=== PATIENT | female | born 1990 | race Caucasian/White ===

== ENCOUNTER 2017-06-28 19:07 | Emergency (ER) | payer BC ==
[2017-06-28 19:29] VITALS: BP 136/86; PULSE 99; TEMP 98.1; BMI 52.3
[2017-06-28] MEDS ORDERED: ALBUTEROL SO4 2.5/IPRATROPIUM 0.5 INH SOL 3 ML VIAL.NEB. NEB ONE ×2 (20:12→20:13)
[2017-06-28] MEDS ORDERED: KETOROLAC TROMETHAMINE 30 MG/1 ML VIAL IVPUSH ONE (20:19)
[2017-06-28] MEDS ORDERED: KETOROLAC TROMETHAMINE 30 MG/1 ML VIAL ONE (20:32)
--- NOTE | 2017-06-28 20:35 | PDOC ---
History of Present Illness - General Chief Complaint: Pain Stated Complaint: CHEST PAIN Time Seen by Provider: 06/28/17 19:57 History Source: Patient Exam Limitations: No Limitations - History of Present Illness Initial Comments: 06/28/17 20:22 The patient is a 26F with a PMH of morbid obesity, asthma, and anemia who presents to the ED with CP and difficulty breathing. The patient states that her difficulty breathing has been occurring for the past few days. The patient is also complaining of chest pain that started 1 hour ago. The chest pain is retrosternal and radiates to both shoulders. It is not associated with diaphoresis or nausea. The patient states that she's been out of breath easily. The patient states that she has tried her symbicort and it has not helped. She also complains of lightheadedness x 1.5 weeks. Allergies: none Surg: none Social: does not drink, smoke, or use drugs Past History - Past Medical History Allergies/Adverse Reactions: Allergies Allergy/AdvReac Type Severity Reaction Status Date / Time No Known Allergies Allergy Verified 06/28/17 19:27 Home Medications: Ambulatory Orders Albuterol Sulfate Inhaler - [Ventolin HFA Inhaler -] 1 - 2 inh IH Q4H #1 inhaler 05/20/12 Budesonide/Formeterol Fumarate [SYMBICORT 80/4.5mcg -] 1 inh PO DAILY 10/29/15 Norethindrone-E.estradiol-Iron [Microgestin Fe 1.5-30 Tab] 1 each PO DAILY 10/29 Albuterol Sulfate Inhaler - [Ventolin HFA Inhaler -] 1 - 2 inh PO Q4H #1 inhaler 06/28/17 Anemia: Yes (blood transfusion 06/12/15) Asthma: Yes Suicide Attempt (Hx): No - Reproductive History Therapeutic (s) & number: No - Immunization History Td Vaccination: (unknown) Immunization Up to Date: Yes - Psycho/Social/Smoking Cessation Hx Anxiety: No Suicidal Ideation: No Smoking Status: No Smoking History: Never smoked Years of Tobacco Use: 0 Have you smoked in the past 12 months: No Number of Cigarettes Smoked Daily: 0 Cigars Per Day: 0 Information on smoking cessation initiated: No Hx Alcohol Use: No Drug/Substance Use Hx: No Substance Use Type: None Hx Substance Use Treatment: No Review of Systems - Review of Systems Constitutional: No: Chills, Fever HEENTM: Yes: Nose Congestion. No: Eye Pain, Ear Pain, Nose Pain Respiratory: Yes: Cough, Shortness of Breath, Productive cough (white phlegm). No: Wheezing Cardiac (ROS): Yes: Chest Pain ABD/GI: Yes: Nausea. No: Vomiting, Other (abd pain) : No: Dysuria, Discharge, Frequency Neurological: Yes: Headache *Physical Exam - Vital Signs Last Vital Signs Temp Pulse Resp BP Pulse Ox 98.1 F 99 H 18 136/86 98 06/28/17 19:27 06/28/17 19:27 06/28/17 19:27 06/28/17 19:27 06/28/17 19:27 - Physical Exam General Appearance: Yes: Nourished, Appropriately Dressed, Obese HEENT: positive: Normal Voice, Hearing Grossly Normal Respiratory/Chest: positive: Chest Tender, Wheezing (more prominent in R lung [place]). negative: Respiratory Distress, Accessory Muscle Use Cardiovascular: positive: Regular Rhythm, S1, S2, Tachycardia Gastrointestinal/Abdominal: positive: Flat, Soft. negative: Tender, Distended, Guarding, Rebound, Tenderness Integumentary: positive: Dry, Warm. negative: Swelling Neurologic: positive: Fully Oriented, Alert, Normal Mood/Affect, Motor Strength 5/5 Heart Score/ECG Review - ECG Impressions Normal ECG: Yes Tachycardia: Sinus ED Treatment Course - LABORATORY CBC & Chemistry Diagram: 06/28/17 20:31 06/28/17 20:31 Medical Decision Making - Medical Decision Making 06/28/17 20:42 The patient is a 26F with a PMH of obesity and asthma who is presenting with TTP chest pain and difficulty breathing. EKG is sinus tach, she is wheezy in R lung [place] so I will rule out pna and give her nebs. I have drawn basic labs and will reassess patient after neb and labs return. 06/28/17 22:18 Patient's labs are WNL. The patient's pain has not been resolved but I have advised the patient to take motrin if the pain continues or return to the ER if it persists or worsens. The patient's wheezing has resolved after a neb treatment. I will also prescribe her a rescue inhaler. *DC/Admit/Observation/Transfer Diagnosis at time of Disposition: Chest wall pain - Discharge Dispostion Disposition: HOME Condition at time of disposition: Improved Admit: No - Patient Instructions Printed Discharge Instructions: DI for Atypical Chest Pain, DI for Chest Pain Additional Instructions: Please return to the ER if symptoms persist, worsen, or if new symptoms arise. Please return if you have increased shortness of breath, worsening chest pain, or if you feel like your symptoms are not getting better. - Attestations Physician Attestion: 06/28/17 22:22 I, Dr. Jeff Carver, attest that this document has been prepared under my direction and personally reviewed by me in its entirety. I further attest, that it accurately reflects all work, treatment, procedures and medical decision -making performed by me.
[2017-06-28 20:44] LABS: BASOPHIL 0.5 % (0-2.0); EOSINOPHIL 3.4 % (0-4.5); MCH 26.7 pg (25.7-33.7); MCHC 32.2 g/dl (32.0-36.0); MEAN CELL VOLUME 83.1 fl (80-96); MEAN PLT VOLUME 8.2 fl (7.5-11.1); NEUTROPHILS 66.7 % (42.8-82.8); PLATELET COUNT 394 K/MM3 (134-434); WHITE BLOOD COUNT 9.7 K/mm3 (4.0-10.0)
[2017-06-28 21:14] LABS: ALBUMIN 3.2 g/dl (3.4-5.0); ALK PHOS 134 U/L (45-117); ANION GAP 7 (8-16); BILIRUBIN,TOTAL 0.2 mg/dL (0.2-1.0); CALCIUM 8.9 mg/dL (8.5-10.1); CO2 26 mmol/L (21-32); CREATININE 0.8 mg/dL (0.55-1.02); GLUCOSE,RANDOM 99 mg/dL (74-106); SGPT/ALT 25 U/L (12-78); TOT PROT 7.5 g/dl (6.4-8.2)
[2017-06-28 21:33] LABS: SGOT/AST 24 U/L (15-37)
--- NOTE | 2017-06-30 08:16 | EKG ---
Test Reason : Blood Pressure : / mmHG Vent. Rate : 101 BPM Atrial Rate : 101 BPM P-R Int : 136 ms QRS Dur : 086 ms QT Int : 338 ms P-R-T Axes : 021 016 008 degrees QTc Int : 438 ms SINUS TACHYCARDIA OTHERWISE NORMAL ECG WHEN COMPARED WITH ECG OF 29-OCT-2015 21:58, NO SIGNIFICANT CHANGE WAS FOUND Confirmed by SNEHA CHASE MD ([id number]) on 06/30/2017 8:16:24 AM Referred By: Confirmed By:SNEHA CHASE MD
== END 2017-06-28 23:09 | disposition home or self-care (01) ==
LOC: JER 19:07
PROC: 3E0333Z Introduction of Anti-inflammatory into Peripheral Vein, Percutaneous Approach (ICD-10-PCS; principal; 2017-06-28)
PROC: 3E0F7GC Introduction of Other Therapeutic Substance into Respiratory Tract, Via Natural or Artificial Opening (ICD-10-PCS; 2017-06-28)
DX: R07.89 Other chest pain (principal); E66.01 Morbid (severe) obesity due to excess calories; Z68.43 Body mass index [BMI] 50.0-59.9, adult; J45.909 Unspecified asthma, uncomplicated; D64.9 Anemia, unspecified
CPT/HCPCS: 36415; 71020-TC; 80053; 83690; 84703; 85025; 85379; 93005; 93010; 99282-25

== ENCOUNTER 2017-07-05 16:49 | Emergency (ER) | payer BC ==
[2017-07-05 17:09] VITALS: BP 154/93; PULSE 97; TEMP 98.2; BMI 54.9
[2017-07-05] MEDS ORDERED: predniSONE 20 MG TABLET (UD) PO ONE (17:37)
[2017-07-05] MEDS ORDERED: predniSONE 20 MG TABLET (UD) ONE (17:40)
[2017-07-05] MEDS ORDERED: ALBUTEROL SO4 2.5/IPRATROPIUM 0.5 INH SOL 3 ML VIAL.NEB. NEB ONE ×4 (17:40→22:41)
[2017-07-05] MEDS: ALBUTEROL SO4 2.5/IPRATROPIUM 0.5 INH SOL 3 ML VIAL.NEB. NEB SCH ×3 (17:43→19:00)
--- NOTE | 2017-07-05 17:43 | PDOC ---
History of Present Illness - General Chief Complaint: Asthma Stated Complaint: ASTHMA Time Seen by Provider: 07/05/17 17:34 History Source: Patient Exam Limitations: No Limitations - History of Present Illness Initial Comments: 07/05/17 19:05 26 yr female history of asthma no intubations , one hospitalization 10 yrs ago presents with cough, wheezing for 3 days. Pt recently seen in ER 06/28/17 for same , was given albuterol and felt better. Pt denies smoking or exposure, is speaking full sentences. Severity: reports: mild Possible Cause: Yes: frequent episodes Past History - Past Medical History Allergies/Adverse Reactions: Allergies Allergy/AdvReac Type Severity Reaction Status Date / Time No Known Allergies Allergy Verified 07/05/17 17:04 Home Medications: Ambulatory Orders Budesonide/Formeterol Fumarate [SYMBICORT 80/4.5mcg -] 1 inh PO DAILY 10/29/15 Norethindrone-E.estradiol-Iron [Microgestin Fe 1.5-30 Tab] 1 each PO DAILY 10/29 Albuterol Sulfate Inhaler - [Ventolin HFA Inhaler -] 1 - 2 inh PO Q4H #1 inhaler 06/28/17 Anemia: Yes (blood transfusion 06/12/15) Asthma: Yes Suicide Attempt (Hx): No Other medical history: obesity - Reproductive History Therapeutic (s) & number: No - Immunization History Td Vaccination: (unknown) Immunization Up to Date: Yes - Psycho/Social/Smoking Cessation Hx Anxiety: No Suicidal Ideation: No Smoking Status: No Smoking History: Never smoked Years of Tobacco Use: 0 Have you smoked in the past 12 months: No Number of Cigarettes Smoked Daily: 0 Cigars Per Day: 0 Hx Alcohol Use: No Drug/Substance Use Hx: No Substance Use Type: None Hx Substance Use Treatment: No Respiratory Specific PMHX - Complaint Specific PMHX Angina: No Bronchitis: Yes Review of Systems - Review of Systems Able to Perform ROS?: Yes Is the patient limited Afghan proficient: No Constitutional: No: Symptoms Reported HEENTM: No: Symptoms Reported Respiratory: Yes: Cough, Wheezing *Physical Exam - Vital Signs Last Vital Signs Temp Pulse Resp BP Pulse Ox 98.2 F 97 H 19 154/93 95 07/05/17 17:04 07/05/17 17:04 07/05/17 17:04 07/05/17 17:04 07/05/17 17:04 - Physical Exam General Appearance: Yes: Nourished, Appropriately Dressed, Obese HEENT: positive: EOMI, KEV, Normal ENT Inspection, TMs Normal, Pharynx Normal Neck: positive: Supple Respiratory/Chest: positive: Chest Tender, Wheezing Cardiovascular: positive: Regular Rhythm, Regular Rate Musculoskeletal: positive: Normal Inspection Extremity: positive: Normal Capillary Refill, Normal Inspection, Normal Range of Motion Integumentary: positive: Normal Color, Dry, Warm Neurologic: positive: Fully Oriented, Alert, Normal Mood/Affect, Normal Response , Motor Strength 5/5 Medical Decision Making - Medical Decision Making 07/05/17 19:07 cc: cough wheezing afebrile stable vitals will give duoneb x3 prednisone 60mg and reevaluate 07/05/17 19:38 pt continues to wheeze after 3 duonebs, 60mg prednisone. will transfer pt to the main ER for further management, endorsed to Lianet TONEY charge nurse Callum robertson and pt to go to bed 11A pt aware of the plan of care and agrees with the plan . 07/05/17 19:42 *DC/Admit/Observation/Transfer Diagnosis at time of Disposition: Asthma, Viral syndrome, Obesities, morbid - Discharge Dispostion Disposition: HOME Condition at time of disposition: Stable - Referrals Referrals: Favio Ann MD [Staff Physician] - - Patient Instructions Printed Discharge Instructions: Asthma -- Adult, DI for Obesity -- Adult Additional Instructions: Follow up with your physician Return to the ER for severe/persistent/worsening symptoms Print Language: ESTONIAN - Post Discharge Activity Work/School Note: Back to Work
[2017-07-05] MEDS ORDERED: MAGNESIUM SULF 50% (8.12 MEQ/2 ML-1 GM VIAL) IVPB ONE (20:02)
[2017-07-05] MEDS ORDERED: MAGNESIUM SULF 50% (8.12 MEQ/2 ML-1 GM VIAL) ONE (20:15)
--- NOTE | 2017-07-05 22:35 | PDOC ---
*Physical Exam - Vital Signs Last Vital Signs Temp Pulse Resp BP Pulse Ox 98.2 F 97 H 19 154/93 95 07/05/17 17:04 07/05/17 17:04 07/05/17 17:04 07/05/17 17:04 07/05/17 17:04 ED Treatment Course - ADDITIONAL ORDERS Additional order review: Laboratory Results 07/05/17 21:10 Urine HCG, Qual Negative - RADIOLOGY Radiology Studies Ordered: Category Date Time Status CHEST PA & LAT [RAD] Stat Radiology 07/05/17 20:49 Taken - Medications Given in the ED: ED Medications Discontinued Medications Generic Name Dose Route Start Last Admin Trade Name Freq PRN Reason Stop Dose Admin Albuterol/Ipratropium 1 amp 07/05/17 17:45 07/05/17 19:00 Duoneb - NEB 07/05/17 18:16 1 amp Q15M LUANN Administration Magnesium Sulfate 1 gm 07/05/17 20:02 07/05/17 20:24 Magnesium Sulfate IVPB 07/05/17 20:03 1 gm ONCE ONE Administration Prednisone 60 mg 07/05/17 17:37 07/05/17 17:43 Deltasone - PO 07/05/17 17:38 60 mg ONCE ONE Administration *DC/Admit/Observation/Transfer Diagnosis at time of Disposition: Viral syndrome, Obesities, morbid Asthma Qualifiers: Asthma severity: mild intermittent Asthma complication type: uncomplicated Qualified Code(s): J45.20 - Mild intermittent asthma, uncomplicated - Discharge Dispostion Disposition: HOME Condition at time of disposition: Stable Admit: No - Referrals Referrals: Favio Ann MD [Staff Physician] - - Patient Instructions Printed Discharge Instructions: Asthma -- Adult, DI for Obesity -- Adult Additional Instructions: Follow up with your physician Return to the ER for severe/persistent/worsening symptoms Print Language: HAITIAN - Post Discharge Activity Work/School Note: Back to Work
== END 2017-07-05 23:41 | disposition home or self-care (01) ==
LOC: JER 16:49 → JERFT 16:49 → JER 23:41
PROC: 3E033GC Introduction of Other Therapeutic Substance into Peripheral Vein, Percutaneous Approach (ICD-10-PCS; principal; 2017-07-05)
PROC: 3E0F7GC Introduction of Other Therapeutic Substance into Respiratory Tract, Via Natural or Artificial Opening (ICD-10-PCS; 2017-07-05)
DX: J45.20 Mild intermittent asthma, uncomplicated (principal); B34.9 Viral infection, unspecified; E66.01 Morbid (severe) obesity due to excess calories; Z68.43 Body mass index [BMI] 50.0-59.9, adult; D64.9 Anemia, unspecified
CPT/HCPCS: 71020-TC; 84703; 99282-25

== ENCOUNTER 2017-10-14 13:19 | Emergency (ER) | payer BC ==
[2017-10-14 13:25] VITALS: BP 155/91; PULSE 82; TEMP 97.7; BMI 54.9
[2017-10-14] MEDS ORDERED: ALBUTEROL SO4 2.5/IPRATROPIUM 0.5 INH SOL 3 ML VIAL.NEB. NEB ONE ×2 (15:23→15:29)
--- NOTE | 2017-10-14 15:25 | PDOC ---
History of Present Illness - General Chief Complaint: Cold Symptoms Stated Complaint: COLD SYMPTOMS Time Seen by Provider: 10/14/17 14:53 History Source: Patient Exam Limitations: No Limitations - History of Present Illness Initial Comments: 10/14/17 16:04 My chief complaint: Sore throat, nasal congestion, cough, with intermittent shortness of breath with walking, intermittent headaches History of present illness: Patient is a 27-year-old female with a history of asthma and anemia here today complaining of sore throat, with intermittent headache none presently, nasal congestion, dry cough with intermittent shortness of breath with exertion for the last 3 days. Patient recalls being admitted for her asthma when she was 15 or 16 years old with no intubation. Patient reports that her parents were sick with similar symptoms recently. Patient denies having any fever or difficulty swallowing. Patient reports having intermittent wheezing relieved with nebulizer. Patient has had no recent travel Timing/Duration: intermittent (for 3 days ) Associated Symptoms: reports: cough, headaches, other (cough , sore throat ) Past History - Past Medical History Allergies/Adverse Reactions: Allergies Allergy/AdvReac Type Severity Reaction Status Date / Time No Known Allergies Allergy Verified 10/14/17 13:22 Home Medications: Ambulatory Orders Albuterol Sulfate Inhaler - [Ventolin HFA Inhaler -] 1 - 2 inh PO Q4H #1 inhaler 06/28/17 Albuterol 0.083% Nebulizer Wilma [Ventolin 0.083% Nebulizer Soln -] 1 neb NEB Q4H PRN #1 vial 10/14/17 Albuterol Sulfate Inhaler - [Ventolin HFA Inhaler -] 2 inh PO Q4H PRN #1 inh Amoxicillin - [Amoxicillin 500mg Capsule -] 500 mg PO BID #20 capsule 10/14/17 Montelukast Na [Singulair -] 10 mg PO HS 10/14/17 Anemia: Yes (blood transfusion 06/12/15) Asthma: Yes COPD: No - Reproductive History Therapeutic (s) & number: No - Immunization History Td Vaccination: (unknown) Immunization Up to Date: Yes - Suicide/Smoking/Psychosocial Hx Smoking Status: No Smoking History: Never smoked Years of Tobacco Use: 0 Have you smoked in the past 12 months: No Number of Cigarettes Smoked Daily: 0 Cigars Per Day: 0 Information on smoking cessation initiated: No Hx Alcohol Use: No Drug/Substance Use Hx: No Substance Use Type: None Hx Substance Use Treatment: No Review of Systems - Review of Systems Able to Perform ROS?: Yes Constitutional: No: Symptoms Reported HEENTM: Yes: Nose Congestion, Throat Pain Respiratory: Yes: Cough, SOB with Exertion, Wheezing Cardiac (ROS): No: Symptoms Reported ABD/GI: No: Symptoms Reported : No: Symptoms Reported Musculoskeletal: No: Symptoms Reported Integumentary: No: Symptoms Reported Neurological: No: Symptoms reported *Physical Exam - Vital Signs Last Vital Signs Temp Pulse Resp BP Pulse Ox 97.7 F 82 18 155/91 100 10/14/17 13:23 10/14/17 13:23 10/14/17 13:23 10/14/17 13:23 10/14/17 13:23 - Physical Exam General Appearance: Yes: Appropriately Dressed HEENT: positive: TMs Normal, Pharyngeal Erythema, Tonsillar Erythema (with no uvular deviation ), Nasal Congestion. negative: Tonsillar Exudate Neck: negative: Lymphadenopathy (R), Lymphadenopathy (L) Respiratory/Chest: positive: Lungs Clear, Normal Breath Sounds. negative: Chest Tender, Respiratory Distress Cardiovascular: positive: Regular Rhythm, Regular Rate, S1, S2 Integumentary: positive: Normal Color Neurologic: positive: Alert, Normal Response, Responsive Medical Decision Making - Medical Decision Making 10/14/17 16:06 Patient is a 27-year-old female with a history of asthma and anemia here today complaining of sore throat, with intermittent headache none presently, nasal congestion, dry cough with intermittent shortness of breath with exertion for the last 3 days. Patient recalls being admitted for her asthma when she was 15 or 16 years old with no intubation. Patient reports that her parents were sick with similar symptoms recently. Patient denies having any fever or difficulty swallowing. Patient reports having intermittent wheezing relieved with nebulizer. Patient has had no recent travel r/o Strep tonsillitis asthma exacerbation PLAN: throat C & S rapid + for beta hemolytic strep group A duoneb now amoxicillin 500 mg bid for 10 days albuterol HFA 2 puffs every 4 hrs prn wheezing/sob albuterol neb 0.083 % neb every 4 hrs prn wheezing/sob *DC/Admit/Observation/Transfer Diagnosis at time of Disposition: Acute streptococcal tonsillitis Qualifiers: Streptococcal tonsillitis recurrence: not specified as recurrent or not Qualified Code(s): J03.00 - Acute streptococcal tonsillitis, unspecified Asthma exacerbation Qualifiers: Asthma severity: unspecified severity Asthma persistence: unspecified Qualified Code(s): J45.901 - Unspecified asthma with (acute) exacerbation - Discharge Dispostion Disposition: HOME Condition at time of disposition: Stable - Referrals Referrals: STAFF,NOT ON [Primary Care Provider] - - Patient Instructions Additional Instructions: Take ibuprofen or acetaminophen as needed as instructed by golf course superintendent for pain or fever Throw out her toothbrush at the end of treatment get new one Return to emergency room if symptoms worsen any difficulty breathing or any new symptoms develop Patient voiced understanding of discharge instructions and all questions were answered And thank you for choosing [facility] emergency room premedical needs today - Post Discharge Activity
== END 2017-10-14 16:15 | disposition home or self-care (01) ==
LOC: JERFT 13:19
PROC: 3E0F7GC Introduction of Other Therapeutic Substance into Respiratory Tract, Via Natural or Artificial Opening (ICD-10-PCS; principal; 2017-10-14)
PROC: 3E0F7GC Introduction of Other Therapeutic Substance into Respiratory Tract, Via Natural or Artificial Opening (ICD-10-PCS; 2017-10-14)
DX: J03.00 Acute streptococcal tonsillitis, unspecified (principal); J45.901 Unspecified asthma with (acute) exacerbation; R51 Headache
CPT/HCPCS: 87070; 87430; 99281-25

== ENCOUNTER 2018-04-01 07:58 | Emergency (ER) | payer BC ==
[2018-04-01 08:03] VITALS: BP 170/80; PULSE 78; TEMP 97.4; BMI 61.9
--- NOTE | 2018-04-01 08:10 | PDOC ---
History of Present Illness - General Chief Complaint: Back Pain Stated Complaint: LOWER BACK PAIN Time Seen by Provider: 04/01/18 08:08 History Source: Patient Exam Limitations: No Limitations - History of Present Illness Initial Comments: 04/01/18 08:26 CHIEF COMPLAINT: Right lateral low back pain HISTORY OF PRESENT ILLNESS:27 y/o morbidly obese female presents to the ER ambulatory with steady gait. C/O right lateral low back pain. Patient states pain started 3 days ago, has been working out a lot recently using the treadmill , elliptical and doing pushups and sit-ups thinks she may have strained something. Has been taking muscle relaxers cyclobenzaprine but they in 2016 pain is to right lateral lower back, , Nonradiating pain, no neurosensory deficits, no bowel or bladder difficulty incontinence or urinary retention, no saddle anesthesia, no footdrop. No history of IVDU or history of cancer. REVIEW OF SYSTEMS: GENERAL: Afebrile, denies any weakness RESPIRATORY: No cough, wheezing, or hemoptysis. CARDIAC: No chest pain or shortness of breath MUSCULOSKELETAL: Pain to generalized lower back. No point tenderness. Pain worse on right than left. SKIN : No erythema, no bruising, no deformity. GI/: Denies any abdominal pain, no urinary difficulty, incontinence or urinary retention. RECTAL: Denies any difficulty this A.m. NEUROLOGICAL: Denies any numbness or tingling. No neurosensory deficits. PHYSICAL EXAM: GENERAL: The patient is awake, alert, and fully oriented, in no acute distress. RESPIRATORY: Lungs clear bilaterally, no rhonchi wheezes or crackles CARDIAC: S1-S2 audible, no murmur rub or gallop MUSCULOSKELETAL: Pain to generalized lower back, nonradiating, no tingling or sensory deficit. Less than 2 second cap refill, +4 popliteal and pedal pulses. GI/: Abdomen soft, nontender, nondistended. No rebound tenderness. No masses palpable. MUSCULOSKELETAL: No spinal point tenderness. Normal reflexive and no deficits to sensation or strength. RECTAL: Deferred patient with no neurological findings SKIN: Warm, Dry, normal turgor, no erythema, no edema no bruising. Past History - Past Medical History Allergies/Adverse Reactions: Allergies Allergy/AdvReac Type Severity Reaction Status Date / Time No Known Allergies Allergy Verified 04/01/18 08:00 Home Medications: Ambulatory Orders Albuterol Sulfate Inhaler - [Ventolin HFA Inhaler -] 1 - 2 inh PO Q4H #1 inhaler 06/28/17 Albuterol 0.083% Nebulizer Wilma [Ventolin 0.083% Nebulizer Soln -] 1 neb NEB Q4H PRN #1 vial 10/14/17 Albuterol Sulfate Inhaler - [Ventolin HFA Inhaler -] 2 inh PO Q4H PRN #1 inh Montelukast Na [Singulair -] 10 mg PO HS 10/14/17 Cyclobenzaprine HCl [Flexeril 10 mg] 10 mg PO BID PRN #20 tablet 04/01/18 Naproxen [Naprosyn -] 500 mg PO BID #20 tablet 04/01/18 Anemia: Yes (blood transfusion 06/12/15) Asthma: Yes COPD: No - Reproductive History Therapeutic (s) & number: No - Immunization History Td Vaccination: (unknown) Immunization Up to Date: Yes - Suicide/Smoking/Psychosocial Hx Smoking Status: No Smoking History: Never smoked Years of Tobacco Use: 0 Have you smoked in the past 12 months: No Number of Cigarettes Smoked Daily: 0 Cigars Per Day: 0 Information on smoking cessation initiated: No Hx Alcohol Use: No Drug/Substance Use Hx: No Substance Use Type: None Hx Substance Use Treatment: No *Physical Exam - Vital Signs Last Vital Signs Temp Pulse Resp BP Pulse Ox 97.4 F L 78 18 170/80 100 04/01/18 08:00 04/01/18 08:00 04/01/18 08:00 04/01/18 08:00 04/01/18 08:00 Medical Decision Making - Medical Decision Making 04/01/18 08:34 A/P: Patient here for evaluation of right lateral lower back pain, on examination appears to be musculoskeletal in nature. Will give Toradol 60 mg IM , urinalysis, urine culture and urine sent 04/01/18 11:40 Laboratory Results - last 24 hr 04/01/18 08:25 Urine Color Ltyellow Urine Appearance Slcloudy Urine pH 5.0 Ur Specific [place] 1.028 Urine Protein Negative Urine Glucose (UA) Negative Urine Ketones Negative Urine Blood 3+ H Urine Nitrite Negative Urine Bilirubin Negative Urine Urobilinogen Negative Ur Leukocyte Esterase Trace Urine WBC (Auto) 13 Urine RBC (Auto) 247 Ur Epithelial Cells Rare Urine Mucus Rare Urine HCG, Qual Negative Patient has +3 blood in the urine, reports having prolonged menses since March 23 has been bleeding intermittently since. We cannot rule out kidney stone due to area of pain with + 3 blood in the urine. CT scan performed with no evidence of calculus will DC patient home on anti-inflammatories, Flexeril, follow-up with orthopedics as needed for pain. *DC/Admit/Observation/Transfer Diagnosis at time of Disposition: Back pain Qualifiers: Back pain location: low back pain Chronicity: acute Back pain laterality: right Sciatica presence: without sciatica Qualified Code(s): M54.5 - Low back pain - Discharge Dispostion Disposition: HOME Condition at time of disposition: Stable Decision to Admit order: No - Prescriptions Prescriptions: Cyclobenzaprine HCl [Flexeril 10 mg] 10 mg PO BID PRN #20 tablet PRN Reason: Pain Naproxen [Naprosyn -] 500 mg PO BID #20 tablet - Referrals - Patient Instructions Printed Discharge Instructions: DI for Low Back Pain Additional Instructions: 1. Please return to the emergency department with any numbness, tingling, weakness, numbness or tingling to groin or legs, or loss of bowel or bladder function. 2. Use pain medication as ordered. 3. Please is to followup in the office of Dr. Ledesma for evaluation within a week if no improvement. 4. Ice or heat 5. Refrain from lifting anything above 10 pounds, until pain resolved. Refrain from strenuous activity until pain resolves. - Post Discharge Activity Forms/Work/School Notes: Back to Work
[2018-04-01] MEDS ORDERED: KETOROLAC TROMETHAMINE 60 MG/2 ML VIAL IM ONE (08:25)
[2018-04-01 09:17] LABS: HCG,QUALITATIVE URINE NEGATIVE
[2018-04-01 09:18] LABS: URINE APPEARANCE SLCLOUDY; URINE BILIRUBIN NEGATIVE (<2.0 mg/dL); URINE COLOR LTYELLOW; URINE GLUCOSE (UA) NEGATIVE (NEGATIVE); URINE KETONE NEGATIVE (NEGATIVE); URINE LEUK ESTERASE TRACE (NEGATIVE); URINE NITRITE NEGATIVE (NEGATIVE); URINE PROTEIN NEGATIVE (NEGATIVE); URINE UROBILINOGEN NEGATIVE mg/dL (0.2-1.0)
[2018-04-01] MEDS ORDERED: KETOROLAC TROMETHAMINE 60 MG/2 ML VIAL ONE (09:28)
[2018-04-01 09:38] LABS: EPI CELLS RARE /HPF (FEW); URINE MUCUS RARE
== END 2018-04-01 11:47 | disposition home or self-care (01) ==
LOC: JERFT 07:58
PROC: 3E0233Z Introduction of Anti-inflammatory into Muscle, Percutaneous Approach (ICD-10-PCS; principal; 2018-04-01)
DX: M54.5 Low back pain (principal)
CPT/HCPCS: 74176; 81003; 81015; 84703; 99281-25

== ENCOUNTER 2018-05-06 08:05 | Emergency (ER) | payer BC ==
[2018-05-06 08:12] VITALS: BP 141/79; PULSE 97; TEMP 98; BMI 60.2
--- NOTE | 2018-05-06 08:19 | PDOC ---
History of Present Illness - General Chief Complaint: Back Pain Stated Complaint: BACK PAIN Time Seen by Provider: 05/06/18 08:16 History Source: Patient Exam Limitations: No Limitations - History of Present Illness Initial Comments: 05/06/18 08:49 Patient is a 27-year-old female who presents to the emergency department today complaining of low back pain. Patient states that she feels like she states that the computer a lot which may contribute to her back pain. Denies trauma, fall, heavy lifting, new activity. Denies fevers, chills, numbness and tingling to the extremities, saddle paresthesia, bladder bowel incontinence. Past History - Travel Traveled outside of the country in the last 30 days: No - Past Medical History Allergies/Adverse Reactions: Allergies Allergy/AdvReac Type Severity Reaction Status Date / Time No Known Allergies Allergy Verified 05/06/18 08:08 Home Medications: Ambulatory Orders Ibuprofen 800 mg PO TID #30 tablet 05/06/18 Tramadol HCl 50 mg PO BID #10 tablet MDD 2 05/06/18 Anemia: Yes (blood transfusion 06/12/15) Asthma: Yes COPD: No DVT: No - Reproductive History Therapeutic (s) & number: No - Immunization History Td Vaccination: (unknown) Immunization Up to Date: Yes - Suicide/Smoking/Psychosocial Hx Smoking Status: No Smoking History: Never smoked Years of Tobacco Use: 0 Have you smoked in the past 12 months: No Number of Cigarettes Smoked Daily: 0 Cigars Per Day: 0 Information on smoking cessation initiated: No Hx Alcohol Use: No Drug/Substance Use Hx: No Substance Use Type: None Hx Substance Use Treatment: No Review of Systems - Review of Systems Able to Perform ROS?: Yes Comments:: 05/06/18 08:17 CONSTITUTIONAL: Absent: fever, chills, diaphoresis, generalized weakness, malaise, loss of appetite GASTROINTESTINAL: Absent: abdominal pain, abdominal distension, nausea, vomiting, diarrhea, constipation, melena, hematochezia GENITOURINARY: Absent: dysuria, frequency, urgency, hesitancy, hematuria, flank pain, genital pain MUSCULOSKELETAL: Present: Low back pain. Absent: myalgia, arthralgia, joint swelling SKIN: Absent: rash, itching, pallor NEUROLOGIC: Absent: headache, focal weakness or paresthesias, dizziness, unsteady gait, seizure, mental status changes, bladder or bowel incontinence Is the patient limited Mohawk proficient: No *Physical Exam - Vital Signs Last Vital Signs Temp Pulse Resp BP Pulse Ox 98.0 F 97 H 18 141/79 100 05/06/18 08:10 05/06/18 08:10 05/06/18 08:10 05/06/18 08:10 05/06/18 08:10 - Physical Exam Comments: 05/06/18 08:17 GENERAL: Well developed, well nourished. Awake and alert. No acute distress. HEENT: Normocephalic, atraumatic. PERRLA, EOMI. No conjunctival pallor. Sclera are non- icteric. Moist mucous membranes. Oropharynx is clear. NECK: Supple. Full ROM. No JVD. Carotid pulses 2+ and symmetric, without bruits. No thyromegaly. No lymphadenopathy. TTP of the midback at the level of L3 radiating to the right side. Normal range of motion at all joints. No bony deformities or tenderness. No CVA tenderness. EXTREMITIES: No cyanosis. No clubbing. No edema. No calf tenderness. SKIN: Warm and dry. Normal capillary refill. No rashes. No jaundice. NEUROLOGICAL: Alert, awake, appropriate. Cranial nerves 2-12 intact. No deficits to light touch and temperature in face, upper extremities and lower extremities. No motor deficits in the in face, upper extremities and lower extremities. Normoreflexic in the upper and lower extremities. Normal speech. Toes are down- going bilaterally. Gait is normal without ataxia. PSYCHIATRIC: Cooperative. Good eye contact. Appropriate mood and affect. Medical Decision Making - Medical Decision Making 05/06/18 09:19 Patient is a 27-year-old female who presents to the emergency department today with low back pain. On exam patient tender to the mid back at the level of L3. No neuro deficits. Gait steady. Urine is negative at this time. We'll treat with Toradol as this is most likely a muscle spasm. Return precautions given. We'll discharge patient home at this time. Patient received all discharge instructions and all questions were answered. *DC/Admit/Observation/Transfer Diagnosis at time of Disposition: Back pain Qualifiers: Back pain location: low back pain Chronicity: acute Back pain laterality: right Sciatica presence: without sciatica Qualified Code(s): M54.5 - Low back pain - Discharge Dispostion Disposition: HOME Condition at time of disposition: Good Decision to Admit order: No - Prescriptions Prescriptions: Ibuprofen 800 mg PO TID #30 tablet Tramadol HCl 50 mg PO BID #10 tablet MDD 2 - Referrals Referrals: Tarun Diaz MD [Primary Care Provider] - - Patient Instructions Printed Discharge Instructions: DI for Low Back Pain Additional Instructions: You have low back pain due to a muscle spasm. Please take ibuprofen 800 mg 3 times a day not to exceed 3000 mg a day. You were also prescribed Flexeril. Please take this medication every 8 hours for the first day. Then take the medication before you go to bed. Do not drive after taking this medication as it may make you sleepy. You may take Tramadol every 12 hours as needed for break through pain. Do not drive after taking this medication or mix with alcohol. You may use warm compresses on your back to help with her symptoms. Please follow-up with your primary care doctor. If your symptoms do not resolve in 3-5 days, follow-up with orthopedics. A referral has been provided for you. Return to the emergency department if you have worsening back pain, bladder or bowel incontinence, numbness and tingling in her legs, changes in the way you walk, or any new or worsening symptoms. - Post Discharge Activity Forms/Work/School Notes: Back to Work
[2018-05-06] MEDS ORDERED: KETOROLAC TROMETHAMINE 60 MG/2 ML VIAL IM ONE (09:01)
[2018-05-06] MEDS ORDERED: KETOROLAC TROMETHAMINE 60 MG/2 ML VIAL ONE (09:16)
== END 2018-05-06 09:20 | disposition home or self-care (01) ==
LOC: JERFT 08:05
PROC: 3E0233Z Introduction of Anti-inflammatory into Muscle, Percutaneous Approach (ICD-10-PCS; principal; 2018-05-06)
DX: M54.5 Low back pain (principal); J45.909 Unspecified asthma, uncomplicated
CPT/HCPCS: 84703; 99281-25

== ENCOUNTER 2018-09-16 20:22 | Emergency (ER) | payer BC ==
[2018-09-16 20:31] VITALS: BP 152/85; PULSE 84; TEMP 98.1; BMI 58.4
--- NOTE | 2018-09-16 21:40 | PDOC ---
History of Present Illness - General Chief Complaint: Asthma Stated Complaint: Asthma/BACK PAIN Time Seen by Provider: 09/16/18 21:32 - History of Present Illness Initial Comments: 09/16/18 21:36 28-year-old female with past medical history significant for asthma presents for evaluation of asthma, she states she's been taking her home albuterol but ran out and neck pain with right upper extremity radicular symptoms. No loss of bowel bladder function. No systemic symptoms. Past History - Past Medical History Allergies/Adverse Reactions: Allergies Allergy/AdvReac Type Severity Reaction Status Date / Time No Known Allergies Allergy Verified 09/16/18 20:30 Home Medications: Ambulatory Orders Albuterol 0.083% Nebulizer Wilma 09/16/18 Albuterol Sulfate Inhaler - [Ventolin HFA Inhaler -] 1 - 2 inh PO Q4H #1 inhaler 09/16/18 Methylprednisolone [Medrol Dose Marcell] 4 mg PO ASDIR #21 tablet 09/16/18 SYMBICORT 160/4.5mcg - 09/16/18 Anemia: Yes (blood transfusion 06/12/15) Asthma: Yes COPD: No DVT: No - Reproductive History Therapeutic (s) & number: No - Immunization History Td Vaccination: (unknown) Immunization Up to Date: Yes - Suicide/Smoking/Psychosocial Hx Smoking Status: No Smoking History: Never smoked Years of Tobacco Use: 0 Have you smoked in the past 12 months: No Number of Cigarettes Smoked Daily: 0 Cigars Per Day: 0 Information on smoking cessation initiated: No Hx Alcohol Use: No Drug/Substance Use Hx: No Substance Use Type: None Hx Substance Use Treatment: No Review of Systems - Review of Systems Respiratory: Yes: Wheezing Musculoskeletal: Yes: Neck Pain All Other Systems: Reviewed and Negative *Physical Exam - Vital Signs Last Vital Signs Temp Pulse Resp BP Pulse Ox 98.1 F 84 16 152/85 100 09/16/18 20:28 09/16/18 20:28 09/16/18 20:28 09/16/18 20:28 09/16/18 20:28 - Physical Exam Comments: 09/16/18 21:37 HEAD: NC/AT EYES: Conjuntiva clear Ears: Canals and TM's normal NOSE: No d/c THROAT: Moist mucous membrances, oral pharanx clear, uvula midline NECK: Supple without adenopathy CARDIAC: S1 S2 LUNGS: CTA Full and Equal breath sounds ABDOMEN: Soft NT ND MS: Full ROM in all joints without edema NEUROLOGIC: No gross sensory or motor deficits, NVID SKIN: Normal color and temperature no lesions or rashes Cervical spine skin color and temperature are normal range of motion is full is mild right-sided paracervical and trapezial muscle spasm. 5 out of 5 strength in bilateral upper extremities but a negative Spurling maneuver. She has no gross sensorimotor deficits. She is neurovascular intact. Medical Decision Making - Medical Decision Making 09/16/18 21:37 Patient has no symptoms of asthma. She's not wheezing. I will give her Medrol Dosepak for her radicular symptoms and refill her Ventolin as requested. Shell with pulmonology in orthopedics *DC/Admit/Observation/Transfer Diagnosis at time of Disposition: Cervical radicular pain, Medication refill - Discharge Dispostion Disposition: HOME Condition at time of disposition: Stable Decision to Admit order: No - Prescriptions Prescriptions: Albuterol Sulfate Inhaler - [Ventolin HFA Inhaler -] 1 - 2 inh PO Q4H #1 inhaler Methylprednisolone [Medrol Dose Marcell] 4 mg PO ASDIR #21 tablet - Referrals Referrals: Tarun Diaz MD [Primary Care Provider] - Tyson Gross MD [Staff Physician] - Uli Swain MD [Staff Physician] - - Patient Instructions Printed Discharge Instructions: Asthma -- Adult, DI for Cervical Radiculopathy Additional Instructions: I have refilled her albuterol as requested and given you a steroid pack which should help with her asthmatic symptoms although you are not wheezing now steroids are indicated for asthma exacerbations. Please follow-up with orthopedic surgery for further evaluation and treatment of her neck pain as well as pulmonology for further evaluation and treatment of her asthma. The steroid will also help with your neck pain and arm pain. Return to the emergency room should symptoms worsen or go unresolved. I'll up with orthopedic surgery in 2-3 days - Post Discharge Activity
== END 2018-09-16 21:45 | disposition home or self-care (01) ==
LOC: JERFT 20:22
DX: M54.12 Radiculopathy, cervical region (principal); Z76.0 Encounter for issue of repeat prescription; Z87.09 Personal history of other diseases of the respiratory system
CPT/HCPCS: 99281-25

== ENCOUNTER 2018-11-26 15:14 | Inpatient (IN) | payer BC ==
--- NOTE | 2018-11-26 15:23 | PDOC ---
Rapid Medical Evaluation Time Seen by Provider: 11/26/18 15:19 Medical Evaluation: Allergies Allergy/AdvReac Type Severity Reaction Status Date / Time No Known Allergies Allergy Verified 09/16/18 20:30 11/26/18 15:19 I have performed a brief in-person evaluation of this patient. The patient presents with a chief complaint of: headaches Pertinent physical exam findings: sent by ophtho for head CT. CNII-XII grossly intact. Gait steady I have ordered the following: urine, CTH The patient will proceed to the ED for further evaluation. Discharge Disposition - Diagnosis Headache - Referrals Referrals: Adrienne Watts [Primary Care Provider] - - Patient Instructions - Post Discharge Activity
[2018-11-26 16:39] LABS: HCG,QUALITATIVE URINE Negative
--- NOTE | 2018-11-26 16:41 | PDOC ---
History of Present Illness - General Chief Complaint: Headache Stated Complaint: SENT BY PCP FOR A CATSCAN Time Seen by Provider: 11/26/18 15:19 - History of Present Illness Initial Comments: 11/26/18 16:49 Ms. Scott is a 28 yo female w/ pmh of asthma who presents for evaluation of 1 month history of headache with burning eye pain. Patient was evaluated by eye doctor today and recommended to present to ER for CT for evaluation. Patient was noted to have papil edema at eye doctor earlier today. The patient denies chest pain, shortness of breath, and dizziness. Denies fever , chills, nausea, vomit, diarrhea and constipation. Denies dysuria, frequency, urgency and hematuria. Past History - Past Medical History Allergies/Adverse Reactions: Allergies Allergy/AdvReac Type Severity Reaction Status Date / Time No Known Allergies Allergy Verified 11/26/18 15:31 Home Medications: Ambulatory Orders Albuterol Sulfate Inhaler - [Ventolin HFA Inhaler -] 1 - 2 inh PO Q4H #1 inhaler 09/16/18 Albuterol 0.083% Nebulizer Wilma [Ventolin 0.083%] 1 neb NEB Q4H PRN 11/26/18 Budesonide/Formeterol Fumarate [SYMBICORT 160/4.5mcg -] 2 inh PO BID 11/26/18 Montelukast Sodium [Singulair] 10 mg PO HS 11/26/18 Anemia: Yes (blood transfusion 06/12/15) Asthma: Yes COPD: No CHF: No DVT: No - Reproductive History Therapeutic (s) & number: No - Immunization History Td Vaccination: (unknown) Immunization Up to Date: Yes - Suicide/Smoking/Psychosocial Hx Smoking Status: No Smoking History: Never smoked Years of Tobacco Use: 0 Have you smoked in the past 12 months: No Number of Cigarettes Smoked Daily: 0 Cigars Per Day: 0 Information on smoking cessation initiated: No Hx Alcohol Use: No Drug/Substance Use Hx: No Substance Use Type: None Hx Substance Use Treatment: No Review of Systems - Review of Systems Comments:: 11/26/18 16:50 GENERAL/CONSTITUTIONAL: No fever or chills. No weakness. HEAD, EYES, EARS, NOSE AND THROAT: +Eye "burning." No change in vision. No ear pain or discharge. No sore throat. CARDIOVASCULAR: No chest pain or shortness of breath RESPIRATORY: No cough, wheezing, or hemoptysis. GASTROINTESTINAL: No nausea, vomiting, diarrhea or constipation. GENITOURINARY: No dysuria, frequency, or change in urination. MUSCULOSKELETAL: No joint or muscle swelling or pain. No neck or back pain. SKIN: No rash NEUROLOGIC: +Generalized headache. No vertigo, loss of consciousness, or change in strength/sensation. ENDOCRINE: No increased thirst. No abnormal weight change HEMATOLOGIC/LYMPHATIC: No anemia, easy bleeding, or history of blood clots. ALLERGIC/IMMUNOLOGIC: No hives or skin allergy. *Physical Exam - Vital Signs Last Vital Signs Temp Pulse Resp BP Pulse Ox 97.5 F L 81 18 142/63 100 11/26/18 15:20 11/26/18 15:20 11/26/18 15:20 11/26/18 15:20 11/26/18 15:20 - Physical Exam Comments: 11/26/18 16:50 GENERAL: +Patient morbidly obese. Awake, alert, and fully oriented, in no acute distress HEAD: No signs of trauma, normocephalic, atraumatic EYES: PERRLA, EOMI, sclera anicteric, conjunctiva clear ENT: Auricles normal inspection, hearing grossly normal, nares patent, oropharynx clear without exudates. Moist mucosa NECK: Normal ROM, supple, no lymphadenopathy, JVD, or masses LUNGS: No distress, speaks full sentences, clear to auscultation bilaterally HEART: Regular rate and rhythm, normal S1 and S2, no murmurs, rubs or gallops, peripheral pulses normal and equal bilaterally. ABDOMEN: Soft, nontender, normoactive bowel sounds. No guarding, no rebound. No masses EXTREMITIES: Normal inspection, Normal range of motion, no edema. No clubbing or cyanosis. NEUROLOGICAL: Cranial nerves II through XII grossly intact. Normal speech, normal gait, no focal sensorimotor deficits SKIN: Warm, Dry, normal turgor, no rashes or lesions noted. Moderate Sedation - Procedure Monitoring Vital Signs: Procedure Monitoring Vital Signs Temperature 97.5 F L 11/26/18 15:20 Pulse Rate 81 11/26/18 15:20 Respiratory Rate 18 11/26/18 15:20 Blood Pressure 142/63 11/26/18 15:20 O2 Sat by Pulse Oximetry (%) 100 11/26/18 15:20 ED Treatment Course - LABORATORY CBC & Chemistry Diagram: 11/26/18 17:41 11/26/18 17:41 - ADDITIONAL ORDERS Additional order review: Laboratory Results 11/26/18 16:00 Urine HCG, Qual Negative Medical Decision Making - Medical Decision Making 11/26/18 18:18 Ms. Scott is a 28 yo female w/ pmh as described who presents for evaluation of symptoms concerning for increased ICP. Patient evaluated with CT which was normal. LP revealed opening pressure of 37 and required draining several times to normalize. CSF currently pending laboratory evaluation. Discussed with Neurology who recommended admission with MRI for determination of further treatment (e.g. diamox admin or not). Discussed with PCP who will admit. Of note , bedside US revealed optic nerve diameter of 0.403cm and 0.461 (R/L). *DC/Admit/Observation/Transfer Diagnosis at time of Disposition: Elevated intracranial pressure Headache Qualifiers: Headache type: unspecified Headache chronicity pattern: unspecified pattern Intractability: not intractable Qualified Code(s): R51 - Headache - Discharge Dispostion Decision to Admit order: Yes - Referrals Referrals: Adrienne Watts [Primary Care Provider] - - Patient Instructions - Post Discharge Activity
[2018-11-26 16:47] LABS: URINE APPEARANCE CLEAR; URINE BILIRUBIN NEGATIVE (<2.0 mg/dL); URINE COLOR LTYELLOW; URINE GLUCOSE (UA) NEGATIVE (NEGATIVE); URINE KETONE NEGATIVE (NEGATIVE); URINE LEUK ESTERASE NEGATIVE (NEGATIVE); URINE NITRITE NEGATIVE (NEGATIVE); URINE PROTEIN NEGATIVE (NEGATIVE); URINE UROBILINOGEN NEGATIVE mg/dL (0.2-1.0)
[2018-11-26] MEDS ORDERED: SODIUM CHLORIDE 1,000 ML IV STA (16:55)
[2018-11-26] MEDS ORDERED: METOCLOPRAMIDE HCL INJECTION 10 MG/2 ML VIAL IVPUSH ONE (16:55)
--- NOTE | 2018-11-26 17:10 | PDOC ---
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 Patient is complaining of a headache and eye pain for the past month. Patient also had a fundoscopic exam. The patient denies chest pain, shortness of breath, headache and dizziness. Denies fever, chills, nausea, vomit, diarrhea and constipation. Denies dysuria, frequency, urgency and hematuria. Allergies: NKA Past surgical history: None reported. Social history: No reported alcohol, drug or cigarette use. PCP: Dr. Adrienne Watts - Physicial Exam PE: 11/26/18 18:29 ADULT PHYSICAL EXAM Constitutional: Awake, alert, oriented. No acute distress. (+) Morbidly obese. Head: Normocephalic. Atraumatic Eyes: PERRL. EOMI. Conjunctivae are not pale. ENT: Mucous membranes are moist and intact. Posterior pharynx without exudates or erythema. Uvula midline. Neck: Supple. Full ROM. No lymphadenopathy. Cardiovascular: Regular rate. Regular rhythm. S1, S2 regular. Distal pulses are 2+ and symmetric. Pulmonary/Chest: No evidence of respiratory distress. Clear to auscultation bilaterally No wheezing, rales or rhonchi. Abdominal: Soft and non-distended. There is no tenderness. No rebound, guarding or rigidity. No organomegaly. No palpable masses. Good bowel sounds. Back: No CVA tenderness. Musculoskeletal: No edema. No cyanosis. No clubbing. Full range of motion in all extremities. Nocalf tenderness. Radial/pedal pulses are intact and 2+ bilaterally Skin: Skin is warm and dry. No petechiae. No purpura. Neurological: Alert and oriented to person, place, and time. Cranial nerves II -XII are grossly intact. Normal speech. Strength is grossly symmetric. No sensory deficits. Psychiatric: Good eye contact. Normal interaction, affect and behavior. <Chika Marrero - Last Filed: 11/26/18 18:29> - Resident Resident Name: Dontae Arrington - ED Attending Attestation I have performed the following: I have examined & evaluated the patient, The case was reviewed & discussed with the resident, I agree w/resident's findings & plan, Exceptions are as noted - Medical Decision Making 11/26/18 17:10 I, Dr. Tia Gaona, DO, attest that this document has been prepared under my direction and personally reviewed by me in its entirety. I further attest, that it accurately reflects all work, treatment, procedures and medical decision -making performed by me. 11/26/18 17:59 a/p: 28yo female sent from the solar photovoltaic systems engineer for concern for dilated vessels to the back of the eye -concern for elevated intracranial htn -will send for head ct, labs -pt c/o a adams x 1 month, eye pain -underwent full fundoscopic exam at the eye doctor -will perform bedside ultrasound of the eyes -may need LP for opening pressure 11/26/18 20:45 LP consent obtained LP performed opening pressure 37, drained to 22, adams resolved case discussed with Dr. Freedman who requests MRI and obs CSF results pending call placed to Dr. Watts - PMD 11/26/18 20:54 resident discussed the case with Dr. Watts 11/26/18 22:[address] Watts for admission <Tia Gaona - Last Filed: 11/26/18 22:07>
[2018-11-26] MEDS ORDERED: METOCLOPRAMIDE HCL INJECTION 10 MG/2 ML VIAL ONE (17:54)
[2018-11-26 18:29] LABS: BASO % 0.5 % (0-2.0); EOS % 2.2 % (0-4.5); HEMATOCRIT 33.4 % (32.4-45.2); HEMOGLOBIN 10.9 GM/dL (10.7-15.3); LYMPH % 24.3 % (8-40); MCH 24.9 pg (25.7-33.7); MCHC 32.7 g/dl (32.0-36.0); MEAN CELL VOLUME 76.2 fl (80-96); MEAN PLT VOLUME 7.7 fl (7.5-11.1); MONO % 4.8 % (3.8-10.2); NEUT % 68.2 % (42.8-82.8); PLATELET COUNT 479 K/MM3 (134-434); RBC 4.38 M/mm3 (3.60-5.2); WHITE BLOOD COUNT 12.1 K/mm3 (4.0-10.0)
[2018-11-26 18:41] LABS: EPI CELLS RARE /HPF (FEW); URINE MUCUS RARE
[2018-11-26 18:47] LABS: INR 1.08 (0.83-1.09); PROTHROMBIN TIME (PATIENT) 12.7 SEC (9.7-13.0)
[2018-11-26 18:49] LABS: ACTIVATED PTT 32.2 SECONDS (25.2-36.5)
[2018-11-26 18:57] LABS: ALBUMIN 3.4 g/dl (3.4-5.0); ALK PHOS 144 U/L (45-117); ANION GAP 8 MMOL/L (8-16); BILIRUBIN,TOTAL 0.4 mg/dL (0.2-1); BLOOD UREA NITROGEN 14 mg/dL (7-18); CALCIUM 8.6 mg/dL (8.5-10.1); CHLORIDE 104 mmol/L (98-107); CO2 25 mmol/L (21-32); CREATININE 0.6 mg/dL (0.55-1.3); GLUCOSE,RANDOM 81 mg/dL (74-106); SGOT/AST 15 U/L (15-37); SGPT/ALT 24 U/L (13-61); SODIUM 137 mmol/L (136-145); TOT PROT 7.8 g/dl (6.4-8.2)
[2018-11-26] MEDS ORDERED: LIDOCAINE HCL 1%, 10 MG/ML (50 mL VIAL) INF ONE (20:01)
[2018-11-26] MEDS ORDERED: LIDOCAINE HCL 1%, 10 MG/ML (20ML VIAL) ONE (20:02)
[2018-11-26] MEDS ORDERED: ALBUTEROL SO4 8 GM HFA INHALER IH PRN (22:24)
[2018-11-26] MEDS ORDERED: ALBUTEROL SO4 0.083% IH SOL 2.5 MG/3 ML VIAL.NEB. NEB PRN (22:24)
[2018-11-26 22:33] LABS: CSF APPEARANCE CLEAR; CSF COLOR COLORLESS; CSF WBC 7
[2018-11-26 23:04] LABS: BF GLUCOSE (CSF ONLY) 50 mg/dL (40-70)
[2018-11-27 04:19] VITALS: BMI 35.4
--- NOTE | 2018-11-27 08:35 | CON.NEURO ---
Consult - Past Medical History Pulmonary: Yes: Asthma. No: Bronchitis, Cancer, COPD, O2 Dependent, Pneumonia, Previously Intubated, Pulmonary Embolus, Pulmonary Fibrosis, Sleep Apnea, Other ...LMP: 05/19/15 - Alcohol/Substance Use Hx Alcohol Use: No - Smoking History Smoking history: Never smoked Have you smoked in the past 12 months: No Aproximately how many cigarettes per day: 0 Home Medications - Allergies Allergies/Adverse Reactions: Allergies Allergy/AdvReac Type Severity Reaction Status Date / Time No Known Allergies Allergy Verified 11/26/18 15:31 - Home Medications Home Medications: Ambulatory Orders Albuterol Sulfate Inhaler - [Ventolin HFA Inhaler -] 1 - 2 inh PO Q4H #1 inhaler 09/16/18 Albuterol 0.083% Nebulizer Wilma [Ventolin 0.083%] 1 neb NEB Q4H PRN 11/26/18 Budesonide/Formeterol Fumarate [SYMBICORT 160/4.5mcg -] 2 inh PO BID 11/26/18 Montelukast Sodium [Singulair] 10 mg PO HS 11/26/18 Family Disease History - Family Disease History Family Disease History: Heart Disease: Father Physical Exam-Neuro Vital Signs: Vital Signs Temperature 97.8 F 11/27/18 04:16 Pulse Rate 78 11/27/18 04:16 Respiratory Rate 18 11/27/18 04:16 Blood Pressure 120/68 11/27/18 04:16 O2 Sat by Pulse Oximetry (%) 98 11/27/18 04:14 Labs: CBC, BMP 11/26/18 17:41 11/26/18 17:41 INR, PTT INR 1.08 (0.83-1.09) 11/26/18 17:41 Assessment/Plan cc Headahce and papilledema HPI 28 year old female history of obesity and asthma. he has been having headhace , mostly dull aching. She has normal ct head.Her spinal tap opening pressure was high upto 34. Patient denies any focal neurological symptoms. She is non smoker, no ocp or taking any supplements. She has mri of brain done and is pending. PMH as above Allergies/Adverse Reactions: Allergies Allergy/AdvReac Type Severity Reaction Status Date / Time No Known Allergies Allergy Verified 11/26/18 15:31 Home Medications: Albuterol Sulfate Inhaler - [Ventolin HFA Inhaler -] 1 - 2 inh PO Q4H #1 inhaler 09/16/18 Albuterol 0.083% Nebulizer Wilma [Ventolin 0.083%] 1 neb NEB Q4H PRN 11/26/18 Budesonide/Formeterol Fumarate [SYMBICORT 160/4.5mcg -] 2 inh PO BID 11/26/18 Montelukast Sodium [Singulair] 10 mg PO HS 11/26/18 NEUROLOGICAL EXAMINATION Alert oriented x 3, speech is normal, no neck stiffness EOMI, pupils reactive, no face asymmetry, sensation is normal, vf normal by confrontation moving all ext sensation is normal ct head unremarkable mri of brain pending csf opening pressure 37, protein is 22 , and wbc 3 and rbc 55( CSF is unremarkable) saw trapper animal on nov 26 : documented papilledema Assessment: Pseudotumor cerebri. csf is bening, no evidence of Meningitis, SAH . Once mri is normal, patient can be discharged. Plan: 1.She would need to see neuro-optho as outpatient. 2.start diamox 125 mg po bid ( ordered) 3.Follow up with me as outpatient, office info given. Thanking you so much, Ian Freedman MD
[2018-11-27] MEDS ORDERED: BUDESONIDE/FORMETEROL FUMARATE 160/4.5 mcg INHALER IH SCH (10:00)
--- NOTE | 2018-11-27 10:14 | HP ---
Admitting History and Physical - Primary Care Physician PCP: Adrienne Watts - Admission History of Present Illness: Ms. Scott is a 28 yo female w/ pmh of asthma who presents for evaluation of 1 month history of headache with burning eye pain. Patient was evaluated by eye doctor yesterday and recommended to present to ER for CT for evaluation. Patient was noted to have papil edema at eye doctor earlier yesterday. I saw pt few weeks ago in office and I referred her to outpt neurology but she did not see neuro yet/ no fever, LOC, CP/SOB no N/V/C/D, yes chronic back pain, I referred her outpt to neuro but she did not go - to be seen in H now History Source: Patient Limitations to Obtaining History: No Limitations - Past Medical History Pulmonary: Yes: Asthma. No: Bronchitis, Cancer, COPD, O2 Dependent, Pneumonia, Previously Intubated, Pulmonary Embolus, Pulmonary Fibrosis, Sleep Apnea, Other ...LMP: 05/19/15 - Smoking History Smoking history: Never smoked Have you smoked in the past 12 months: No Aproximately how many cigarettes per day: 0 - Alcohol/Substance Use Hx Alcohol Use: No History of Substance Use: reports: None - Social History Usual Living Arrangement: Yes: With Parent ADL: Independent History of Recent Travel: No Home Medications - Allergies Allergies/Adverse Reactions: Allergies Allergy/AdvReac Type Severity Reaction Status Date / Time No Known Allergies Allergy Verified 11/26/18 15:31 - Home Medications Home Medications: Ambulatory Orders Albuterol Sulfate Inhaler - [Ventolin HFA Inhaler -] 1 - 2 inh PO Q4H #1 inhaler 09/16/18 Albuterol 0.083% Nebulizer Wilma [Ventolin 0.083% Nebulizer Soln -] 1 neb NEB Q4H PRN 11/26/18 Budesonide/Formeterol Fumarate [SYMBICORT 160/4.5mcg -] 2 inh PO BID 11/26/18 Montelukast Sodium [Singulair] 10 mg PO HS 11/26/18 acetaZOLAMIDE [Diamox -] 125 mg PO BID #60 tablet 11/27/18 Family Disease History - Family Disease History Family Disease History: Diabetes: Father (ESRD/HD), Heart Disease: Father Review of Systems - Review of Systems Constitutional: denies: Chills, Fever, Lethargy, Weakness Eyes: reports: Eye Pain. denies: Blind Spots, Blurred Vision, Double Vision HENT: denies: Difficult Swallowing, Ear Pain, Epistaxis Neck: denies: Stiffness, Tenderness Cardiovascular: denies: Chest Pain, Shortness of Breath Respiratory: denies: Cough, SOB Gastrointestinal: denies: Abdominal Pain, Constipation, Diarrhea, Nausea, Vomiting Genitourinary: denies: Dysuria, Flank Pain Musculoskeletal: reports: Back Pain (chronic) Integumentary: denies: Pruritis Neurological: reports: Headache. denies: Change in LOC, Confusion, Dizziness, Seizure, Syncope, Weakness Endocrine: denies: Flushing, Intolerance to Cold Hematology/Lymphatic: denies: Easily Bruised, Excessive Bleeding Psychiatric: denies: Altered Sleep Pattern, Anxiety, Depression, Suicidal Physical Examination Vital Signs: Vital Signs Temperature 97.8 F 11/27/18 04:16 Pulse Rate 78 11/27/18 04:16 Respiratory Rate 18 11/27/18 04:16 Blood Pressure 120/68 11/27/18 04:16 O2 Sat by Pulse Oximetry (%) 98 11/27/18 04:14 Constitutional: Yes: No Distress, Calm Eyes: Yes: Conjunctiva Clear HENT: Yes: Atraumatic Neck: Yes: Supple Cardiovascular: Yes: Regular Rate and Rhythm Respiratory: Yes: CTA Bilaterally Gastrointestinal: Yes: Soft. No: Distention Renal/: No: CVA Tenderness - Left, CVA Tenderness - Right Musculoskeletal: No: Joint Stiffness, Joint Swelling Extremities: No: Cold, Cool, Cyanosis Edema: No Integumentary: No: Rash, Venous Stasis Changes Neurological: Yes: WNL, Alert, Oriented ...Motor Strength: WNL Psychiatric: Yes: WNL, Alert, Oriented. No: Agitated, Suicidal Ideation Labs: CBC, BMP 11/26/18 17:41 11/26/18 17:41 Imaging - Results Chest X-ray: Report Reviewed Cat Scan: Report Reviewed Other: Report Reviewed Assessment/Plan Ms. Scott is a 28 yo female w/ pmh of asthma who presents for evaluation of 1 month history of headache with burning eye pain. Patient was noted to have papil edema at eye doctor yesterday and sent for H admission. head CT negative LP in ER high opening pressure, brain MRI to be done, neurology consult called admit to floor for further management and treatment d/w pt and staff
[2018-11-27] MEDS ORDERED: PT OWN MED DRAWER 7, Y5N ONE ×2 (11:11→17:58)
--- NOTE | 2018-11-27 16:50 | DS ---
Physical Examination Vital Signs: Vital Signs Temperature 97.6 F 11/27/18 10:00 Pulse Rate 81 11/27/18 10:00 Respiratory Rate 18 11/27/18 10:00 Blood Pressure 150/81 11/27/18 10:00 O2 Sat by Pulse Oximetry (%) 98 11/27/18 09:00 Findings/Remarks: brain MRI negative, LP fluid prelim negative, cleared by neurology for DC home, pt wants to go home today; said she feels much better after the LP no headaches at all to take diamox as per neurology and to f/u with neurology in 1 week for outpt f/ u of pseudotumor cerebri and also for w/u and treatment of her chronic back pain.\ see PE done today at [facility] Labs: CBC, BMP 11/26/18 17:41 11/26/18 17:41 Discharge Summary Reason For Visit: ELEVATED INTRACRANIAL PRESSURE,HEADACHE Current Active Problems Elevated intracranial pressure (Acute) Headache (Acute) Procedures: Principal: admitted with headaches and papiledema Other Procedures: high opening pressure /LP but head CT and brain MRI negative; c/w pseudotumor cerebri; started on diamox per neurology; Hospital Course: improved with above, DC home and f/u as advised Condition: Improved - Instructions Diet, Activity, Other Instructions: f/u PCP and neurology and eye dr in 1-2 weeks after DC; f/u final results from LP; take meds as advised RTER if worse or recurrent c/o Referrals: Adrienne Watts [Primary Care Provider] - Ian Freedman MD [Staff Physician] - Disposition: HOME - Home Medications Comprehensive Discharge Medication List: Ambulatory Orders Albuterol Sulfate Inhaler - [Ventolin HFA Inhaler -] 1 - 2 inh PO Q4H #1 inhaler 09/16/18 Albuterol 0.083% Nebulizer Wilma [Ventolin 0.083% Nebulizer Soln -] 1 neb NEB Q4H PRN 11/26/18 Budesonide/Formeterol Fumarate [SYMBICORT 160/4.5mcg -] 2 inh PO BID 11/26/18 Montelukast Sodium [Singulair] 10 mg PO HS 11/26/18 acetaZOLAMIDE [Diamox -] 125 mg PO BID #60 tablet 11/27/18
[2018-11-27 17:17] VITALS: BP 130/67; PULSE 84; TEMP 98
[2018-11-27] MEDS ORDERED: MONTELUKAST NA 10 MG TABLET PO SCH (22:00)
[2018-12-02 18:17] LABS: TOXOPLASMA IGG,CSF < 3.0 IU/mL (.)
== END 2018-11-27 18:09 | disposition home or self-care (01) | DRG 103 ==
LOC: JER 15:14 → JERBED 20:56 → J8W 11-27 04:02
PROVIDERS: ADMIT Internal Medicine; ATTEND Internal Medicine
PROC: 009U3ZX Drainage of Spinal Canal, Percutaneous Approach, Diagnostic (ICD-10-PCS; principal; 2018-11-26)
PROC: B01BZZZ Fluoroscopy of Spinal Cord (ICD-10-PCS; 2018-11-26)
DX: G93.2 Benign intracranial hypertension (principal); H47.10 Unspecified papilledema; J45.909 Unspecified asthma, uncomplicated; D64.9 Anemia, unspecified
CPT/HCPCS: 36415; 70450-TC; 70551-TC; 80053; 81003; 81015; 82945; 84157; 84703; 85025; 85610; 85730; 86592; 86663; 86664; 86665; 86777; 86788; 86789; 87070; 87205; 87476; 87529; 87899; 99285-25; J7030

== ENCOUNTER 2019-04-28 15:23 | Emergency (ER) | payer BC | END 2019-04-28 21:02 | disposition home or self-care (01) | LOC: JERFT 15:23 ==

== ENCOUNTER 2019-07-04 09:51 | Emergency (ER) | payer BC | END 2019-07-04 16:00 | disposition home or self-care (01) | LOC: JER 09:51 ==

== ENCOUNTER 2019-10-21 21:44 | Inpatient (IN) | payer BC ==
[2019-10-21 21:51] VITALS: BMI 60.2
--- NOTE | 2019-10-21 21:51 | PDOC ---
Rapid Medical Evaluation Time Seen by Provider: 10/21/19 21:48 Medical Evaluation: Allergies Allergy/AdvReac Type Severity Reaction Status Date / Time No Known Allergies Allergy Verified 10/21/19 21:46 10/21/19 21:48 Pt presents for SOB, chest pain, and generalized weakness. Pt has history of anemia requiring blood transfusions in the past. Pt states she has been bleeding heavily vaginally 2 weeks with clots. Exam: Lungs CTAB Orders: EKG, Labs, IV Pt to proceed to the ER for further evaluation Discharge Disposition - Diagnosis Vaginal bleeding, Shortness of breath - Referrals - Patient Instructions - Post Discharge Activity
[2019-10-22 00:02] LABS: BASO % 0.5 % (0-2.0); HEMATOCRIT 23.2 % (32.4-45.2); MCHC 28.7 g/dl (32.0-36.0); MEAN CELL VOLUME 73.1 fl (80-96); MEAN PLT VOLUME 6.9 fl (7.5-11.1); MONO % 5.3 % (3.8-10.2); NEUT % 70.2 % (42.8-82.8); PLATELET COUNT 468 K/MM3 (134-434); RBC 3.18 M/mm3 (3.60-5.2); RDW 23.7 % (11.6-15.6); WHITE BLOOD COUNT 10.6 K/mm3 (4.0-10.0)
[2019-10-22 00:09] LABS: HEMOGLOBIN 6.7 GM/dL (10.7-15.3)
[2019-10-22 00:35] LABS: ALBUMIN 3.1 g/dl (3.4-5.0); BILIRUBIN,TOTAL 0.1 mg/dL (0.2-1); BLOOD UREA NITROGEN 12.6 mg/dL (7-18); CALCIUM 8.7 mg/dL (8.5-10.1); CREATININE 0.7 mg/dL (0.55-1.3); POTASSIUM 4.2 mmol/L (3.5-5.1); TOT PROT 6.9 g/dl (6.4-8.2)
--- NOTE | 2019-10-22 00:38 | PDOC ---
History of Present Illness - General Chief Complaint: Chest Pain Stated Complaint: CHEST PAIN Time Seen by Provider: 10/21/19 21:48 Past History - Past Medical History Allergies/Adverse Reactions: Allergies Allergy/AdvReac Type Severity Reaction Status Date / Time No Known Allergies Allergy Verified 10/21/19 21:46 Home Medications: Ambulatory Orders Albuterol Sulfate Inhaler - [Ventolin HFA Inhaler -] 1 - 2 inh PO Q4H #1 inhaler 09/16/18 Albuterol 0.083% Nebulizer Wilma [Ventolin 0.083% Nebulizer Soln -] 1 neb NEB Q4H PRN 11/26/18 Budesonide/Formeterol Fumarate [SYMBICORT 160/4.5mcg -] 2 inh PO BID 11/26/18 Montelukast Sodium [Singulair] 10 mg PO HS 11/26/18 acetaZOLAMIDE [Diamox -] 125 mg PO BID #60 tablet 11/27/18 Cetirizine HCl [Zyrtec -] 10 mg PO DAILY 04/28/19 Anemia: Yes (blood transfusion 06/12/15) Asthma: Yes COPD: No CHF: No DVT: No - Reproductive History Therapeutic (s) & number: No - Immunization History Td Vaccination: (unknown) Immunization Up to Date: Yes - Psycho Social/Smoking Cessation Hx Smoking Status: No Smoking History: Never smoked Years of Tobacco Use: 0 Have you smoked in the past 12 months: No Number of Cigarettes Smoked Daily: 0 Cigars Per Day: 0 Hx Alcohol Use: No Drug/Substance Use Hx: No Substance Use Type: None Hx Substance Use Treatment: No *Physical Exam - Vital Signs Last Vital Signs Temp Pulse Resp BP Pulse Ox 114 H 20 157/67 100 10/21/19 21:47 10/21/19 21:47 10/21/19 21:47 10/21/19 21:47 ED Treatment Course - LABORATORY CBC & Chemistry Diagram: 10/21/19 23:55 10/21/19 23:55 - ADDITIONAL ORDERS Additional order review: 10/21/19 23:55 RBC 3.18 L MCV 73.1 L MCHC 28.7 L RDW 23.7 H MPV 6.9 L Neutrophils % 70.2 Lymphocytes % 22.0 Monocytes % 5.3 Eosinophils % 2.0 Basophils % 0.5 Medical Decision Making - Medical Decision Making 10/22/19 01:42 HPI: 29yo F hx anemia 2/2 heavy menses on Fe TID (only 2 doses today) requiring 1 transfusion in 2015, asthma, morbid obesity, and chronic back pain presents from home with substernal intermittent nonpleuritic chest pain gradual onset intermittent from 4697-6656 today worse with exertion and associated SOB, in setting of 2 weeks of vaginal bleeding with large (>quarter-sized) clots x2wks ( normal menses 6-7 days c/mo), similar sx to last time needed transfusion. Chest pain resolved but SOB with exertion still present. Endorses FHx early CAD ( father CT in 40s) and OCP use. Denies trauma, fall, heavy lifting, fever, chills , fatigue, headache, dizziness, numbness/tingling, weakness, vision changes, cough, palpitations, leg swelling, abdominal pain, blood in stool, diarrhea, constipation, nausea, vomiting, dysuria, hematuria, confusion, vaginal discharge , calf tenderness, hx DVT/PE, recent travel, recent surgeries, hemoptysis, recent illness. ROS: Constitutional: Negative for chills, fever, fatigue, diaphoresis. HENT: Negative for sore throat, rhinorrhea, congestion. Eyes: Negative for visual disturbance. Respiratory: Positive for shortness of breath. Negative for cough, and wheezing. Cardiovascular: Positive for chest pain. Negative for palpitations, and leg swelling. Gastrointestinal: Negative for abdominal pain, blood in stool, constipation, diarrhea, nausea, and vomiting. Genitourinary: Negative for dysuria, flank pain, and hematuria. Musculoskeletal: Negative for myalgias, back pain, and neck pain. Skin: Negative for rash. Neurological: Negative for light-headedness, dizziness, vertigo, syncope, weakness, numbness and headaches. Psychiatric/Behavioral: Negative for behavioral problems and confusion. PE: Gen: Alert, NAD, comfortable-appearing, obese HEENT: PERRL, EOMI, MMM, NCAT. No conjunctival pallor. Sclera are non-icteric. CV: Tachycardic rate and regular rhythm. No murmurs, rubs, or gallops. PULM: No resp distress. CTAB, no wheezes, rales, or rhonchi. ABD: soft, NT/ND, no rebound tenderness or guarding, no CVA tenderness. BACK: No TTP of c/t/l-spine. No step-offs or deformities. MSK: No bony deformities. 2+ pulses in all extremities. NEURO: AAOx3. PERRL. No gross CN deficits. Strength and sensation grossly intact throughout. EXTREMITIES: No cyanosis. No clubbing. No edema. No calf tenderness. PSYCH: Normal mood and thought pattern. SKIN: Warm and dry. Normal capillary refill. No rashes. No jaundice. MDM: 29yo F hx anemia 2/2 heavy menses on Fe TID (only 2 doses today) requiring 1 transfusion in 2014, asthma, morbid obesity, and chronic back pain presents from home with substernal intermittent chest pain gradual onset intermittent from 5395-2225 today worse with exertion and associated SOB, in setting of 2 weeks of vaginal bleeding with large (>quarter-sized) clots x2wks (normal menses 6-7 days c/mo), similar sx to last time needed transfusion. Chest pain resolved but SOB with exertion still present. Tachycardic to 100s, otherwise VSS , afebrile, lungs CTAB, obese. Sx most likely 2/2 anemia - transfuse. Also consider ACS/CT, arrythmia, PNA, COPD, metabolic derangement, , infection. Consistency with anemia makes PE of lower concern; however, if blood transfusion does not correct SOB and tachycardia, consider CTPE. -EKG -CXR -CBC,CMP,Coags, Mg, Phos, HCG, cardiac profile, UA/UC -Dispo: admit Labs reviewed. Of note, H/H 6.7/23.2, WBC 10.6 CXR reviewed: no acute pathology EKG reviewed: sinus tachycardia, 111bpm, normal axis, normal intervals, no e/o acute ischemia Due to Hb 6.7 and pt still symptomatic with SOB - ordered 1unit pRBCS. Consent obtained and nurse informed of order. Signed out to admitting Dr. Watts. Discharge - Discharge Information Problems reviewed: Yes Clinical Impression/Diagnosis: Vaginal bleeding, Shortness of breath, Low hemoglobin, Chest pain Condition: Fair - Admission Yes - Follow up/Referral - Patient Discharge Instructions - Post Discharge Activity
[2019-10-22 01:29] LABS: MAGNESIUM 2.1 mg/dL (1.8-2.4); PHOSPHOROUS 2.8 mg/dL (2.5-4.9)
--- NOTE | 2019-10-22 01:32 | PDOC ---
Documentation entered by Jaron Fernandez SCRIBE, acting as scribe for Karen Rivas MD. Karen Rivas MD: This documentation has been prepared by the Jim pitts Daniel, SCRIBE, under my direction and personally reviewed by me in its entirety. I confirm that the documentation accurately reflects all work, treatment, procedures, and medical decision making performed by me. Attending Attestation - Resident Resident Name: Reshma Costa - ED Attending Attestation I have performed the following: I have examined & evaluated the patient, The case was reviewed & discussed with the resident, I agree w/resident's findings & plan, Exceptions are as noted - HPI HPI: 10/22/19 01:16 The patient is a 29 year old female with a past medical history of anemia secondary to heavy menses (on iron, required 1 transfusion in 2014), morbid obesity, asthma, here today for evaluation of chest pain and shortness of breath. The patient reports that around 8 AM this morning she developed pressure like, non radiating, intermittent chest pain that lasted for about 2 hours and notes associated shortness of breath. She states that her shortness of breath continued and is worse with walking. She notes that her chest pain and shortness of breath are similar to when she required a transfusion in the past. She also notes 2 weeks of heavy vaginal bleeding with large clots for the past 2 weeks and reports using 2-3 pads a day. Patient denies headache, lightheadedness, focal weakness/numbness. Denies fever , chills. Denies nausea, vomiting, diarrhea, abdominal pain. Denies LE edema. Allergies: NKA PCP: Adrienne Andgloe - Physicial Exam PE: 10/22/19 01:16 Agree with resident exam - Medical Decision Making 10/22/19 01:27 29-year-old female with a history of anemia secondary to menorrhagia presents to the emergency department with chest pain and shortness of breath. Pt tachycardic to 114 on arrival. Exam unremarkable. Most likely anemia, but ACS vs PE vs PNA also on ddx W/u remarakble for hemoglobin of 6.7. Patient's symptoms are likely secondary to symptomatic anemia. As such, we will transfuse the patient blood and admit. Heart Score/ECG Review #1 10/22/19 01:28 Twelve-lead EKG was performed and reviewed by me. Sinus tachycardia, rate 111. Normal axis and intervals. No ST elevations or T wave inversions.
[2019-10-22 01:48] LABS: INR 0.99 (0.83-1.09); PROTHROMBIN TIME (PATIENT) 11.7 SEC (9.7-13.0)
[2019-10-22 01:51] LABS: ACTIVATED PTT 29.9 SECONDS (25.2-36.5)
[2019-10-22 02:10] LABS: EPI CELLS 1.5 /HPF (0-5/HPF); HYALINE CASTS 2 /lpf (0-8); URINE APPEARANCE CLEAR; URINE BACTERIA 19.9 /hpf (NEGATIVE); URINE BILIRUBIN NEGATIVE (NEGATIVE); URINE COLOR ORANGE; URINE GLUCOSE (UA) NEGATIVE (NEGATIVE); URINE KETONE NEGATIVE (NEGATIVE); URINE LEUK ESTERASE TRACE (NEGATIVE); URINE NITRITE NEGATIVE (NEGATIVE); URINE PROTEIN 2+ (NEGATIVE); URINE RBC 2847 /hpf (0-4); URINE WBC 2 /hpf (0-5)
[2019-10-22 03:17] LABS: ANISOCYTOSIS 3+
[2019-10-22 03:18] LABS: PLATELET ESTIMATE SLT INCREASE; TEAR DROP CELLS 1+
--- NOTE | 2019-10-22 06:52 | HP ---
Admitting History and Physical - Primary Care Physician PCP: Adrienne Watts - Admission Chief Complaint: SOB History of Present Illness: The patient is a 29 year old female with a past medical history of anemia secondary to heavy menses (on iron, required 1 transfusion in 2014), morbid obesity, asthma, here today for evaluation of chest pain weakness and shortness of breath. The patient reports that around 8 AM this morning she developed pressure like, non radiating, intermittent mild 2-3 /10 chest pain that lasted for about 2 hours and notes associated shortness of breath. She states that her shortness of breath continued and is worse with walking. She notes that her chest pain and shortness of breath are similar to when she required a transfusion in the past. She also notes 2 weeks of heavy vaginal bleeding with large clots for the past 2 weeks and reports using 2-3 pads a day. No abdominal pain no dysuria no cough no legs pains or edema. She was seen by [facility] dr Mayorga recently outpt. Patient denies headache, lightheadedness, focal weakness/numbness. Denies fever , chills. Denies nausea, vomiting, diarrhea, abdominal pain. Denies LE edema. No smoking no recent travels states not . 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 No: Bronchitis, Cancer, COPD, O2 Dependent, Pneumonia, Previously Intubated, Pulmonary Embolus, Pulmonary Fibrosis, Sleep Apnea, Other ...LMP: 05/19/15 - Smoking History Smoking history: Never smoked Have you smoked in the past 12 months: No Aproximately how many cigarettes per day: 0 - Alcohol/Substance Use Hx Alcohol Use: No History of Substance Use: reports: None - Social History Usual Living Arrangement: Yes: With Parent Do you think of yourself as: Straight/Heterosexual ADL: Independent History of Recent Travel: No Home Medications - Allergies Allergies/Adverse Reactions: Allergies Allergy/AdvReac Type Severity Reaction Status Date / Time No Known Allergies Allergy Verified 10/21/19 21:46 - Home Medications Home Medications: Ambulatory Orders Albuterol Sulfate Inhaler - [Ventolin HFA Inhaler -] 1 - 2 inh PO Q4H #1 inhaler 09/16/18 Albuterol 0.083% Nebulizer Wilma [Ventolin 0.083% Nebulizer Soln -] 1 neb NEB Q4H PRN 11/26/18 Budesonide/Formeterol Fumarate [SYMBICORT 160/4.5mcg -] 2 inh PO BID 11/26/18 Montelukast Sodium [Singulair] 10 mg PO HS 11/26/18 acetaZOLAMIDE [Diamox -] 125 mg PO BID #60 tablet 11/27/18 Cetirizine HCl [Zyrtec -] 10 mg PO DAILY 04/28/19 Cholecalciferol (Vitamin D3) [Vitamin D3 -] 1,000 unit PO DAILY tab 10/22/19 Ferrous Sulfate [Feosol] 325 mg PO TIDCM ud 10/22/19 Multivit-Minerals [Certavite-Antioxidant Liquid] 15 ml PO DAILY cup 10/22/19 Polyethylene Glycol 3350 [Miralax 119 gm Btl -] 17 gm PO DAILY PRN bottle 10/22 Family Medical History Family History: Unremarkable Review of Systems - Review of Systems Constitutional: denies: Chills, Fever, Lethargy Eyes: denies: Blind Spots, Blurred Vision, Double Vision HENT: denies: Difficult Swallowing, Ear Discharge, Ear Pain, Epistaxis Neck: denies: Decreased ROM, Pain on Movement, Stiffness Cardiovascular: reports: Shortness of Breath. denies: Chest Pain, Edema, Palpitations Respiratory: reports: SOB, SOB on Exertion. denies: Cough, Snoring, Wheezing Gastrointestinal: denies: Abdominal Pain, Bloating, Constipation, Diarrhea, Rectal Bleeding, Vomiting, Vomiting Blood Genitourinary: reports: Vaginal Bleeding. denies: Dysuria, Flank Pain, Hematuria Musculoskeletal: denies: Back Pain, Extremity Pain, Muscle Pain Integumentary: denies: Eczema, Wound Neurological: denies: Change in LOC, Change in Speech, Confusion, Dizziness Endocrine: denies: Excessive Sweating, Flushing Hematology/Lymphatic: reports: Excessive Bleeding. denies: Easily Bruised Psychiatric: denies: Altered Sleep Pattern, Anxiety, Depression, Suicidal Physical Examination Vital Signs: Vital Signs Temperature 97.8 F 10/22/19 06:10 Pulse Rate 84 10/22/19 06:10 Respiratory Rate 20 10/22/19 06:10 Blood Pressure 150/68 10/22/19 06:10 O2 Sat by Pulse Oximetry (%) 100 11/28/19 06:10 Constitutional: Yes: No Distress, Calm Eyes: Yes: Conjunctiva Clear HENT: Yes: Atraumatic Neck: Yes: Supple Cardiovascular: Yes: Regular Rate and Rhythm Respiratory: Yes: CTA Bilaterally Gastrointestinal: Yes: Soft. No: Tenderness Renal/: No: CVA Tenderness - Left, CVA Tenderness - Right, Hematuria Musculoskeletal: No: Joint Stiffness, Joint Swelling Extremities: No: Cold, Cool, Cyanosis Edema: No Integumentary: No: Rash, Venous Stasis Changes Neurological: Yes: WNL, Alert, Oriented ...Motor Strength: WNL Psychiatric: Yes: WNL, Alert, Oriented. No: Agitated, Suicidal Ideation Labs: CBC, BMP 10/21/19 23:55 10/21/19 23:55 Imaging - Results Other: Report Reviewed Assessment/Plan The patient is a 29 year old female with a past medical history of anemia secondary to heavy menses (on iron, required 1 transfusion in 2014), morbid obesity, asthma, here today for evaluation of chest pain and shortness of breath same symptoms that she had when she was anemic in the past no wheezing; s/p recent heavy and prolonged vaginal bleed; transfused in ER pt said she feels much better now (seen in ER) has no more CP no SOB and much less vaginal bleeding now; pt wants to go home loretta - she has plans to have Thanksgiving meal with her family CXR NL; EKG NL, mild tachycardia at admission which resolved after transfusions ; UA many RBC UCx pending (no dysuria) HCG negative; had recent abdominal pelvic CT no acute findings; d/w pt she will need to see [employer] as outpt within 2-3 days and also to have heme eval and GI eval over the next few weeks as advised by me previously; she said she will; d/w pt to RTER if worse or recurrent c/o she said she will
[2019-10-22] MEDS ORDERED: ALBUTEROL SO4 8 GM HFA INHALER IH PRN (07:08)
[2019-10-22] MEDS ORDERED: LORATADINE 10 MG TABLET PO PRN (07:08)
[2019-10-22] MEDS ORDERED: ALBUTEROL SO4 0.083% IH SOL 2.5 MG/3 ML VIAL.NEB. NEB PRN (07:08)
[2019-10-22] MEDS ORDERED: POLYETHYLENE GLYCOL 3350 119 GM BTL PO PRN (07:12)
[2019-10-22] MEDS ORDERED: FAMOTIDINE 40 MG/5 ML ORAL SUSPENSION PO PRN (07:12)
[2019-10-22] MEDS ORDERED: BUDESONIDE/FORMETEROL FUMARATE 160/4.5 mcg INHALER IH SCH (10:00)
[2019-10-22] MEDS ORDERED: MULTIVIT-MINERALS ORAL LIQUID PO SCH (10:00)
[2019-10-22] MEDS ORDERED: CHOLECALCIFEROL (VIT D3) 1,000 UNIT (25 MCG) TABLET PO SCH (10:00)
[2019-10-22] MEDS: FERROUS SO4 325 MG TABLET (FP) PO SCH ×2 (11:00→14:01)
--- NOTE | 2019-10-22 11:35 | EKG ---
Test Reason : Blood Pressure : / mmHG Vent. Rate : 111 BPM Atrial Rate : 111 BPM P-R Int : 140 ms QRS Dur : 090 ms QT Int : 316 ms P-R-T Axes : 042 016 033 degrees QTc Int : 429 ms SINUS TACHYCARDIA MINIMAL VOLTAGE CRITERIA FOR LVH, MAY BE NORMAL VARIANT WHEN COMPARED WITH ECG OF 04-JUL-2019 15:20, NO SIGNIFICANT CHANGE WAS FOUND Confirmed by LEE MARISCAL MD ([id number]) on 10/22/2019 11:34:47 AM Referred By: Confirmed By:LEE MARISCAL MD
[2019-10-22 11:49] VITALS: BP 146/6; PULSE 82; TEMP 98.1
[2019-10-22 11:56] LABS: BASO % 0.9 % (0-2.0); EOS % 2.2 % (0-4.5); HEMATOCRIT 27.5 % (32.4-45.2); HEMOGLOBIN 8.3 GM/dL (10.7-15.3); LYMPH % 19.1 % (8-40); MCH 22.7 pg (25.7-33.7); MEAN CELL VOLUME 75.5 fl (80-96); MONO % 4.4 % (3.8-10.2); NEUT % 73.4 % (42.8-82.8); PLATELET COUNT 468 K/MM3 (134-434); RBC 3.64 M/mm3 (3.60-5.2); RDW 25.2 % (11.6-15.6); WHITE BLOOD COUNT 11.4 K/mm3 (4.0-10.0)
--- NOTE | 2019-10-22 12:33 | CONSULT ---
Consultation: REQUESTING PROVIDER: Heme/Onc Service CONSULT REQUEST: We have been asked to medically evaluate this patient for anemia. HISTORY OF PRESENT ILLNESS: Pt is a 29 y/o F with PMH pseudotumor cerebri and longstanding known microcytic hypochromic anemia 2/2 heavy menses who presents with dizziness after 2 weeks of heavy menses using several pads daily and passing clots. Heme/Onc was called to assess for anemia. On my interview, pt was s/p 2 prbc and feeling much better. No complaints at this time. Review of records revealed that pt had splenomegally in 2014. She did not follow up with her doctor about this. She was advised to do so. REVIEW OF SYSTEMS: CONSTITUTIONAL: Absent: fever, chills, diaphoresis, generalized weakness, malaise, loss of appetite, weight change HEENT: Absent: rhinorrhea, nasal congestion, throat pain, throat swelling, difficulty swallowing, mouth swelling, ear pain, eye pain, visual changes CARDIOVASCULAR: Absent: chest pain, syncope, palpitations, irregular heart rate, lightheadedness , peripheral edema RESPIRATORY: Absent: cough, shortness of breath, dyspnea with exertion, orthopnea, wheezing, stridor, hemoptysis GASTROINTESTINAL: Absent: abdominal pain, abdominal distension, nausea, vomiting, diarrhea, constipation, melena, hematochezia GENITOURINARY: Absent: dysuria, frequency, urgency, hesitancy, hematuria, flank pain, genital pain MUSCULOSKELETAL: Absent: myalgia, arthralgia, joint swelling, back pain, neck pain SKIN: Absent: rash, itching, pallor HEMATOLOGIC/IMMUNOLOGIC: Absent: easy bleeding, easy bruising, lymphadenopathy, frequent infections ENDOCRINE: Absent: unexplained weight gain, unexplained weight loss, heat intolerance, cold intolerance NEUROLOGIC: dizziness, Absent: headache, focal weakness or paresthesias, unsteady gait, seizure, mental status changes, bladder or bowel incontinence PSYCHIATRIC: Absent: anxiety, depression, suicidal or homicidal ideation, hallucinations. PHYSICAL EXAMINATION Vital Signs - 24 hr 10/21/19 10/22/19 10/22/19 21:47 03:15 03:36 Temperature 97.8 F 97.9 F Pulse Rate 114 H Pulse Rate [ 102 H 74 Right Radial] Respiratory 20 17 19 Rate Blood Pressure 157/67 Blood Pressure 158/78 120/43 L [Right Arm] O2 Sat by Pulse 100 100 100 Oximetry (%) 10/22/19 10/22/19 10/22/19 06:10 07:03 11:40 Temperature 97.8 F 98.6 F 98.1 F Pulse Rate Pulse Rate [ 84 76 82 Right Radial] Respiratory 20 12 16 Rate Blood Pressure Blood Pressure 150/68 124/65 146/6 L [Right Arm] O2 Sat by Pulse 100 100 100 Oximetry (%) Gen: NAD, AAOx3, obese HEENT: NCAT, EOMI Neck: supple, no jvd Cardio: distant heart sounds, rrr, normal s1s2, no mrg noted Pulm: cta b/l Breast: no nodules noted Abd: soft, nontender, obese, no hepatosplenomegally noted (difficult to assess 2 /2 abdominal girth) Ext: no edema Laboratory Results - last 24 hr 10/21/19 10/21/19 10/21/19 23:55 23:55 23:55 WBC 10.6 H RBC 3.18 L Hgb 6.7 L* Hct 23.2 L MCV 73.1 L MCH 21.0 L D MCHC 28.7 L RDW 23.7 H Plt Count 468 H MPV 6.9 L Absolute Neuts (auto) 7.5 Neutrophils % 70.2 Lymphocytes % 22.0 Monocytes % 5.3 Eosinophils % 2.0 Basophils % 0.5 Nucleated RBC % 0 Hypochromia 2+ Platelet Estimate Slt increase Platelet Comment Giant platelets Polychromasia 2+ Anisocytosis 3+ Microcytosis 2+ Spherocytes 1+ Tear Drop Cells 1+ PT with INR 11.70 INR 0.99 PTT (Actin FS) 29.9 Sodium 141 Potassium 4.2 Chloride 109 H Carbon Dioxide 23 Anion Gap 9 BUN 12.6 Creatinine 0.7 Est GFR (CKD-EPI)AfAm 137.62 Est GFR (CKD-EPI)NonAf 118.74 Random Glucose 160 H Calcium 8.7 Phosphorus Magnesium Total Bilirubin 0.1 L AST 17 ALT 19 Alkaline Phosphatase 114 Creatine Kinase Troponin I Total Protein 6.9 Albumin 3.1 L Beta HCG, Quant Urine Color Urine Appearance Urine pH Ur Specific [place] Urine Protein Urine Glucose (UA) Urine Ketones Urine Blood Urine Nitrite Urine Bilirubin Urine Urobilinogen Ur Leukocyte Esterase Urine WBC (Auto) Urine RBC (Auto) Urine Casts (Auto) U Epithel Cells (Auto) Urine Bacteria (Auto) Urine HCG, Qual Blood Type Antibody Screen Crossmatch 10/21/19 10/22/19 10/22/19 23:55 00:40 00:40 WBC RBC Hgb Hct MCV MCH MCHC RDW Plt Count MPV Absolute Neuts (auto) Neutrophils % Lymphocytes % Monocytes % Eosinophils % Basophils % Nucleated RBC % Hypochromia Platelet Estimate Platelet Comment Polychromasia Anisocytosis Microcytosis Spherocytes Tear Drop Cells PT with INR INR PTT (Actin FS) Sodium Potassium Chloride Carbon Dioxide Anion Gap BUN Creatinine Est GFR (CKD-EPI)AfAm Est GFR (CKD-EPI)NonAf Random Glucose Calcium Phosphorus Magnesium Total Bilirubin AST ALT Alkaline Phosphatase Creatine Kinase 53 Troponin I < 0.02 Total Protein Albumin Beta HCG, Quant Urine Color Urine Appearance Urine pH Ur Specific [place] Urine Protein Urine Glucose (UA) Urine Ketones Urine Blood Urine Nitrite Urine Bilirubin Urine Urobilinogen Ur Leukocyte Esterase Urine WBC (Auto) Urine RBC (Auto) Urine Casts (Auto) U Epithel Cells (Auto) Urine Bacteria (Auto) Urine HCG, Qual Blood Type O POSITIVE O POSITIVE Antibody Screen Negative Negative Crossmatch See Detail See Detail 10/22/19 10/22/19 10/22/19 00:40 00:40 01:40 WBC RBC Hgb Hct MCV MCH MCHC RDW Plt Count MPV Absolute Neuts (auto) Neutrophils % Lymphocytes % Monocytes % Eosinophils % Basophils % Nucleated RBC % Hypochromia Platelet Estimate Platelet Comment Polychromasia Anisocytosis Microcytosis Spherocytes Tear Drop Cells PT with INR INR PTT (Actin FS) Sodium Potassium Chloride Carbon Dioxide Anion Gap BUN Creatinine Est GFR (CKD-EPI)AfAm Est GFR (CKD-EPI)NonAf Random Glucose Calcium Phosphorus 2.8 Magnesium 2.1 Total Bilirubin AST ALT Alkaline Phosphatase Creatine Kinase Troponin I Total Protein Albumin Beta HCG, Quant < 1.0 Urine Color Urine Appearance Urine pH Ur Specific [place] Urine Protein Urine Glucose (UA) Urine Ketones Urine Blood Urine Nitrite Urine Bilirubin Urine Urobilinogen Ur Leukocyte Esterase Urine WBC (Auto) Urine RBC (Auto) Urine Casts (Auto) U Epithel Cells (Auto) Urine Bacteria (Auto) Urine HCG, Qual Negative Blood Type Antibody Screen Crossmatch 10/22/19 10/22/19 01:40 11:45 WBC 11.4 H RBC 3.64 Hgb 8.3 L Hct 27.5 L D MCV 75.5 L MCH 22.7 L MCHC 30.0 L RDW 25.2 H Plt Count 468 H MPV 7.0 L Absolute Neuts (auto) 8.4 H Neutrophils % 73.4 Lymphocytes % 19.1 Monocytes % 4.4 Eosinophils % 2.2 Basophils % 0.9 Nucleated RBC % 0 Hypochromia Platelet Estimate Platelet Comment Polychromasia Anisocytosis Microcytosis Spherocytes Tear Drop Cells PT with INR INR PTT (Actin FS) Sodium Potassium Chloride Carbon Dioxide Anion Gap BUN Creatinine Est GFR (CKD-EPI)AfAm Est GFR (CKD-EPI)NonAf Random Glucose Calcium Phosphorus Magnesium Total Bilirubin AST ALT Alkaline Phosphatase Creatine Kinase Troponin I Total Protein Albumin Beta HCG, Quant Urine Color [place] Urine Appearance Clear Urine pH 5.0 Ur Specific [place] 1.036 H Urine Protein 2+ H Urine Glucose (UA) Negative Urine Ketones Negative Urine Blood 3+ H Urine Nitrite Negative Urine Bilirubin Negative Urine Urobilinogen 1.0 Ur Leukocyte Esterase Trace Urine WBC (Auto) 2 Urine RBC (Auto) 2847 Urine Casts (Auto) 2 U Epithel Cells (Auto) 1.5 Urine Bacteria (Auto) 19.9 Urine HCG, Qual Blood Type Antibody Screen Crossmatch Active Medications Generic Name Dose Route Start Last Admin Trade Name Freq PRN Reason Stop Dose Admin Acetazolamide 125 mg 10/22/19 10:00 10/22/19 11:00 Diamox - PO 125 mg BID LUANN Administration Albuterol Sulfate 1 amp 10/22/19 07:08 10/22/19 07:25 Ventolin 0.083% Nebulizer Soln - NEB 1 amp Q4H PRN Administration ASTHMA Albuterol Sulfate 1 puff 10/22/19 07:08 Ventolin Hfa Inhaler - IH Q4H PRN COUGH Budesonide/Formoterol Fumarate 2 puff 10/22/19 10:00 10/22/19 11:01 Symbicort 160/4.5mcg - IH 2 puff BID LUANN Administration Cholecalciferol 1,000 unit 10/22/19 10:00 10/22/19 11:02 Vitamin D3 - PO 1,000 unit DAILY LUANN Administration Famotidine 20 mg 10/22/19 07:12 Pepcid PO DAILY PRN INDIGESTION Ferrous Sulfate 325 mg 10/22/19 08:00 10/22/19 11:00 Feosol - PO 325 mg TIDCM LUANN Administration Loratadine 10 mg 10/22/19 07:08 Claritin - PO DAILY PRN FOR ITCHING Montelukast Sodium 10 mg 10/22/19 22:00 Singulair - PO HS LUANN Multivitamins/Minerals 15 ml 10/22/19 10:00 10/22/19 11:01 Certavite-Antioxidant Liquid PO 15 ml DAILY LUANN Administration Polyethylene Glycol 17 gm 10/22/19 07:12 Miralax (For Daily Use) - PO DAILY PRN CONSTIPATION ASSESSMENT/PLAN: Pt is a 29 y/o F with PMH pseudotumor cerebri and longstanding known microcytic hypochromic anemia 2/2 heavy menses who presents with dizziness after 2 weeks of heavy menses using several pads daily and passing clots. Heme/Onc was called to assess for anemia. microcytic hypochromic Anemia -Fe deficiency -recommend venofer -s/p 2 prbc and feeling much better -recommend [facility] & GI follow up remote history of splenomegally -noted on CT in 2014 and 18 -pt states she did not follow up in the past but will be sure to discuss with her PCP Dispo: We will continue to follow the patient. Thank you for this consultative opportunity. Visit type - Emergency Visit Emergency Visit: Yes ED Registration Date: 10/22/19 Care time: The patient presented to the Emergency Department on the above date and was hospitalized for further evaluation of their emergent condition. - New Patient This patient is new to me today: Yes Date on this admission: 10/22/19 - Critical Care Critical Care patient: No ATTENDING PHYSICIAN STATEMENT I saw and evaluated the patient. I reviewed the resident's note and discussed the case with the resident. I agree with the resident's findings and plan as documented. SUBJECTIVE: OBJECTIVE: ASSESSMENT AND PLAN:
[2019-10-22] MEDS ORDERED: FERROUS SO4 325 MG TABLET (FP) ONE (14:00)
--- NOTE | 2019-10-22 14:24 | PN ---
Teaching Attending Note Name of Resident: Alexander Madsen ATTENDING PHYSICIAN STATEMENT Patient discharged prior to being evaluated I reviewed the resident's note and discussed the case with the resident. I agree with the resident's findings and plan as documented. ASSESSMENT AND PLAN: 29 y/o F with PMH pseudotumor cerebri and longstanding known microcytic hypochromic anemia 2/2 heavy menses who presents with dizziness after 2 weeks of heavy menses . Heme/Onc was called to assess for anemia. microcytic hypochromic Anemia -Fe deficiency. Ferritin low--5.7-- on 08/22/19 -recommend venofer 200mg IVPB QOD x 5 doses -s/p 2 prbc and feeling much better -recommend [facility] & GI follow up remote history of splenomegaly -noted on CT in 2014 and 18 check u/s, Myeloproliferaive/lymphoproliferative w/u as outpatient --? JAK2/bcr; abl/flow/ESR/CRP/WENDI/RF/Hep. serologies/ [facility]
[2019-10-22] MEDS ORDERED: MONTELUKAST NA 10 MG TABLET PO SCH (22:00)
--- NOTE | 2019-10-23 08:36 | DS ---
Physical Examination Vital Signs: Vital Signs Temperature 98.1 F 10/22/19 11:40 Pulse Rate 82 10/22/19 11:40 Respiratory Rate 16 10/22/19 11:40 Blood Pressure 146/6 L 10/22/19 11:40 O2 Sat by Pulse Oximetry (%) 100 10/22/19 11:40 Findings/Remarks: see H&P 10/22 pt seen by me in ER 10/22 admitted with anemia sec to vaginal bleeding, transfused in ER H&H 07/18 improved; pt felt better and went home from ER on 10/22 Labs: CBC, BMP 10/22/19 11:45 10/21/19 23:55 Discharge Summary Problems reviewed: Yes Reason For Visit: LOW HEMOGLOBIN Procedures: Principal: anemia sec to vaginal bleed Other Procedures: transfused; seen by heme Hospital Course: improved with above and DCd home from ER - pt advised to f/u closely as outpt Condition: Improved - Instructions Diet, Activity, Other Instructions: f/u PCP GI EMERGENCY MAN and heme as outpt see EMERGENCY MAN within 2-3 days; PCP within 1-2 weeks; see GI and heme within 2-3 weeks; RTER if worse or recurrent c/o You were found to have an enlarged spleen in the past. You need to follow up with Dr. Castañeda. Call the office for an appointment Referrals: Adrienne Watts [Primary Care Provider] - Trista Castañeda MD [Staff Physician] - John Arriola MD [Staff Physician] - Rio House MD [Staff Physician] - Disposition: HOME - Home Medications Comprehensive Discharge Medication List: Ambulatory Orders Albuterol Sulfate Inhaler - [Ventolin HFA Inhaler -] 1 - 2 inh PO Q4H #1 inhaler 09/16/18 Albuterol 0.083% Nebulizer Wilma [Ventolin 0.083% Nebulizer Soln -] 1 neb NEB Q4H PRN 11/26/18 Budesonide/Formeterol Fumarate [SYMBICORT 160/4.5mcg -] 2 inh PO BID 11/26/18 Montelukast Sodium [Singulair] 10 mg PO HS 11/26/18 acetaZOLAMIDE [Diamox -] 125 mg PO BID #60 tablet 11/27/18 Cetirizine HCl [Zyrtec -] 10 mg PO DAILY 04/28/19 Cholecalciferol (Vitamin D3) [Vitamin D3 -] 1,000 unit PO DAILY tab 10/22/19 Ferrous Sulfate [Feosol] 325 mg PO TIDCM ud 10/22/19 Multivit-Minerals [Certavite-Antioxidant Liquid] 15 ml PO DAILY cup 10/22/19 Polyethylene Glycol 3350 [Miralax 119 gm Btl -] 17 gm PO DAILY PRN bottle 10/22
== END 2019-10-22 14:22 | disposition home or self-care (01) | DRG 812 ==
LOC: JER 21:44 → JERBED 10-22 01:43
PROVIDERS: ADMIT Internal Medicine; ATTEND Internal Medicine
PROC: 30233N1 Transfusion of Nonautologous Red Blood Cells into Peripheral Vein, Percutaneous Approach (ICD-10-PCS; principal; 2019-10-22)
DX: D50.9 Iron deficiency anemia, unspecified (principal); Z68.44 Body mass index [BMI] 60.0-69.9, adult; E66.01 Morbid (severe) obesity due to excess calories; R00.0 Tachycardia, unspecified; R07.9 Chest pain, unspecified; R16.1 Splenomegaly, not elsewhere classified; N93.9 Abnormal uterine and vaginal bleeding, unspecified; R42 Dizziness and giddiness; R53.1 Weakness; R06.02 Shortness of breath
CPT/HCPCS: 36415; 36430; 36511; 71046-TC-FY; 80053; 81003; 82550; 83735; 84100; 84484; 84702; 84703; 85025; 85610; 85730; 86850; 86900; 86901; 86922; 87086; 93005; 93010; 99285-25; P9038; P9058

== ENCOUNTER 2020-10-06 21:03 | Emergency (ER) | payer BC ==
[2020-10-06 21:06] VITALS: TEMP 98.2; BMI 56.7
[2020-10-06] MEDS ORDERED: ALBUTEROL SO4 2.5/IPRATROPIUM 0.5 INH SOL 3 ML VIAL.NEB. NEB ONE ×2 (22:27→22:28)
[2020-10-06] MEDS ORDERED: predniSONE 20 MG TABLET (UD) PO ONE (22:27)
[2020-10-06] MEDS ORDERED: predniSONE 20 MG TABLET (UD) ONE (22:28)
[2020-10-06 23:25] VITALS: BP 128/64; PULSE 95
== END 2020-10-06 23:28 | disposition home or self-care (01) ==
LOC: JER 21:03
PROC: 3E0F7GC Introduction of Other Therapeutic Substance into Respiratory Tract, Via Natural or Artificial Opening (ICD-10-PCS; principal; 2020-10-06)
DX: J45.901 Unspecified asthma with (acute) exacerbation (principal)
CPT/HCPCS: 99284-25

== ENCOUNTER 2021-02-02 11:24 | Emergency (ER) | payer BC ==
[2021-02-02 11:31] VITALS: BP 153/75; PULSE 98; BMI 63.8
[2021-02-02] MEDS ORDERED: SODIUM CHLORIDE 0.9% 500 ML INFUS.BAG IV ONE (12:26)
[2021-02-02 13:28] LABS: BASO % 0.3 % (0-2.0); EOS % 1.7 % (0-4.5); HEMATOCRIT 25.8 % (32.4-45.2); HEMOGLOBIN 7.5 GM/dL (10.7-15.3); LYMPH % 14.8 % (8-40); MCH 21.4 pg (25.7-33.7); MEAN CELL VOLUME 73.9 fl (80-96); MEAN PLT VOLUME 7.9 fl (7.5-11.1); MONO % 3.5 % (3.8-10.2); NEUT % 79.7 % (42.8-82.8); PLATELET COUNT 451 K/MM3 (134-434); RBC 3.49 M/mm3 (3.60-5.2); RDW 24.9 % (11.6-15.6); WHITE BLOOD COUNT 9.7 K/mm3 (4.0-10.0)
[2021-02-02 14:11] LABS: ALBUMIN 3.3 g/dl (3.4-5.0); BILIRUBIN,TOTAL 0.3 mg/dL (0.2-1); BLOOD UREA NITROGEN 12.3 mg/dL (7-18); CREATININE 0.6 mg/dL (0.55-1.3)
[2021-02-02 14:30] LABS: POTASSIUM 4.3 mmol/L (3.5-5.1)
[2021-02-02 14:31] LABS: CALCIUM 8.9 mg/dL (8.5-10.1)
[2021-02-02 14:36] LABS: ANISOCYTOSIS 3+; MACROCYTOSIS 0; PLATELET ESTIMATE NORMAL
[2021-02-02 15:24] LABS: HCG,QUALITATIVE URINE Negative
[2021-02-02 15:50] LABS: EPI CELLS 6 /uL (0-25.1); HYALINE CASTS 2 /uL (0-3.1); URINE APPEARANCE CLEAR; URINE BACTERIA 63 /uL (0-1359); URINE BILIRUBIN NEGATIVE (NEGATIVE); URINE COLOR YELLOW; URINE GLUCOSE (UA) NEGATIVE (NEGATIVE); URINE KETONE NEGATIVE (NEGATIVE); URINE LEUK ESTERASE NEGATIVE (NEGATIVE); URINE NITRITE NEGATIVE (NEGATIVE); URINE PROTEIN NEGATIVE (NEGATIVE); URINE RBC 619 /uL (0-23.9); URINE UROBILINOGEN 0.2 mg/dL (0.2-1.0); URINE WBC 6 /uL (0-25.8)
[2021-02-02] MEDS ORDERED: IBUPROFEN 600 MG TABLET (FP) PO ONE ×2 (16:12→16:23)
== END 2021-02-02 16:40 | disposition home or self-care (01) ==
LOC: JER 11:24
DX: R10.31 Right lower quadrant pain (principal)
CPT/HCPCS: 36415; 74176-TC; 76856-TC; 80053; 81003; 84703; 85025; 87086; 99285-25

== ENCOUNTER 2021-03-05 01:09 | Emergency (ER) | payer BC ==
[2021-03-05 01:29] VITALS: TEMP 97.7; BMI 65.2
[2021-03-05] MEDS ORDERED: ACETAMINOPHEN 1000 MG/100 ML VIAL (NON FORMULARY) IVPB ONE (01:35)
[2021-03-05] MEDS ORDERED: ONDANSETRON 4 MG/2 ML VIAL IVPUSH ONE (01:36)
[2021-03-05] MEDS ORDERED: ACETAMINOPHEN INJECTION 100 ML IVPB ONE (02:07)
[2021-03-05] MEDS ORDERED: ONDANSETRON 4 MG/2 ML VIAL ONE (02:07)
[2021-03-05 02:48] LABS: BASO % 0.6 % (0-2.0); HEMATOCRIT 27.8 % (32.4-45.2); HEMOGLOBIN 8.1 GM/dL (10.7-15.3); LYMPH % 16.8 % (8-40); MCH 20.4 pg (25.7-33.7); MCHC 29.1 g/dl (32.0-36.0); MEAN CELL VOLUME 70.1 fl (80-96); MONO % 4.2 % (3.8-10.2); NEUT % 76.4 % (42.8-82.8); PLATELET COUNT 487 K/MM3 (134-434); RBC 3.97 M/mm3 (3.60-5.2); RDW 21.4 % (11.6-15.6)
[2021-03-05 03:07] LABS: BLOOD UREA NITROGEN 20.6 mg/dL (7-18); CALCIUM 9.1 mg/dL (8.5-10.1)
[2021-03-05 03:11] LABS: BILIRUBIN,TOTAL 0.2 mg/dL (0.2-1); CREATININE 0.6 mg/dL (0.55-1.3); TOT PROT 7.1 g/dl (6.4-8.2)
[2021-03-05 04:05] LABS: EPI CELLS 8 /uL (0-25.1); HYALINE CASTS 1 /uL (0-3.1); URINE APPEARANCE CLEAR; URINE BACTERIA 338 /uL (0-1359); URINE BILIRUBIN NEGATIVE (NEGATIVE); URINE COLOR YELLOW; URINE GLUCOSE (UA) NEGATIVE (NEGATIVE); URINE KETONE NEGATIVE (NEGATIVE); URINE LEUK ESTERASE NEGATIVE (NEGATIVE); URINE NITRITE NEGATIVE (NEGATIVE); URINE PROTEIN NEGATIVE (NEGATIVE); URINE RBC 4 /uL (0-23.9); URINE UROBILINOGEN 0.2 mg/dL (0.2-1.0); URINE WBC 5 /uL (0-25.8)
[2021-03-05 04:18] LABS: ANISOCYTOSIS 2+; MACROCYTOSIS 0; PLATELET ESTIMATE INCREASED
[2021-03-05 04:39] VITALS: BP 122/74; PULSE 84
== END 2021-03-05 04:39 | disposition home or self-care (01) ==
LOC: JER 01:09
PROC: 3E033NZ Introduction of Analgesics, Hypnotics, Sedatives into Peripheral Vein, Percutaneous Approach (ICD-10-PCS; principal; 2021-03-05)
PROC: 3E033GC Introduction of Other Therapeutic Substance into Peripheral Vein, Percutaneous Approach (ICD-10-PCS; 2021-03-05)
DX: E66.9 Obesity, unspecified (principal)
CPT/HCPCS: 36415; 71046-TC-FY; 76705-TC; 80053; 81003; 83690; 84703; 85025; 87045; 87046; 87086; 87177; 87209; 93005; 93010; 99285-25; J0131

== ENCOUNTER 2023-12-08 15:53 | Emergency (ER) | payer BC ==
[2023-12-08 16:10] VITALS: BP 153/72; PULSE 87; RESP 18; TEMP 98.1; BMI 59.3
== END 2023-12-08 16:15 | disposition home or self-care (01) ==
LOC: FER 15:53
DX: J45.21 Mild intermittent asthma with (acute) exacerbation (principal); R05.9 Cough, unspecified
CPT/HCPCS: 99282-25

== ENCOUNTER 2023-12-11 19:19 | Emergency (ER) | payer BC ==
[2023-12-11 21:47] VITALS: BP 139/93; PULSE 96; RESP 17; TEMP 98.6; BMI 59.3
[2023-12-11] MEDS ORDERED: ALBUTEROL SO4 2.5/IPRATROPIUM 0.5 INH SOL 3 ML VIAL.NEB. NEB ONE ×2 (23:07→23:16)
== END 2023-12-12 00:56 | disposition home or self-care (01) ==
LOC: FER 19:19
PROC: 3E0F7GC Introduction of Other Therapeutic Substance into Respiratory Tract, Via Natural or Artificial Opening (ICD-10-PCS; principal; 2023-12-11)
DX: J02.9 Acute pharyngitis, unspecified (principal); R13.10 Dysphagia, unspecified; R05.9 Cough, unspecified; R50.9 Fever, unspecified; B34.9 Viral infection, unspecified
CPT/HCPCS: 70490-TC; 99284-25

== ENCOUNTER 2024-01-31 16:49 | Inpatient (IN) | payer BC ==
[2024-01-31] MEDS: SODIUM CHLORIDE 1,000 ML IV ONE (17:40)
[2024-01-31] MEDS ORDERED: KETOROLAC TROMETHAMINE 15 MG/ML VIAL ONE (17:40)
[2024-01-31 17:44] LABS: HEMATOCRIT 31.5 % (32.4-45.2); HEMOGLOBIN 9.8 G/dL (10.7-15.3); MCH 22.4 pg (25.7-33.7); MCHC 31.2 g/dl (32.0-36.0); MEAN CELL VOLUME 71.8 fl (80-96); MEAN PLT VOLUME 7.6 fl (7.5-11.1); PLATELET COUNT 416.6 10^3/uL (134-434); RBC 4.39 10^6/uL (3.60-5.2); RDW 19.8 % (11.6-15.6); WHITE BLOOD COUNT 11.8 10^3/uL (4.0-10.8)
[2024-01-31] MEDS: KETOROLAC TROMETHAMINE 30 MG/1 ML VIAL IVPUSH ONE (17:45)
[2024-01-31] MEDS ORDERED: ONDANSETRON 4 MG/2 ML VIAL ONE (17:46)
[2024-01-31 17:48] LABS: HCG,QUALITATIVE URINE Negative
[2024-01-31] MEDS: ONDANSETRON 4 MG/2 ML VIAL IVPB ONE (17:50)
[2024-01-31 18:02] LABS: BILIRUBIN,TOTAL 0.3 mg/dl (0.2-1); CALCIUM 9.4 mg/dl (8.5-10.1); CREATININE 0.6 mg/dl (0.6-1.3); EPITHELIAL CELLS 0-5 /hpf; POTASSIUM 4.3 mmol/L (3.5-5.1); TOT PROT 7.1 g/dl (6.4-8.2)
[2024-01-31 18:11] LABS: PLATELET ESTIMATE ADEQUATE
[2024-01-31] MEDS ORDERED: ALBUTEROL SO4 0.083% IH SOL 2.5 MG/3 ML VIAL.NEB. NEB ONE (20:43)
[2024-01-31] MEDS: ALBUTEROL SO4 0.083% IH SOL 2.5 MG/3 ML VIAL.NEB. NEB ONE (20:48)
[2024-01-31] MEDS ORDERED: PIPERACILLIN/TAZOBACTAM 4.5 GM VIAL IVPB ONE (20:54)
[2024-01-31] MEDS: PIPERACILLIN/TAZOB 4.5 GM 4.5 GM in DEXTROSE 5%-WATER 100 ML IVPB ONE (21:14)
[2024-01-31] MEDS ORDERED: ACETAMINOPHEN 1000 MG/100 ML BAG IVPB PRN (21:32)
[2024-01-31 21:43] LABS: INR 1.1 (0.83-1.09); PROTHROMBIN TIME (PATIENT) 12.8 SEC (9.7-13.0)
[2024-01-31 21:46] LABS: ACTIVATED PTT 33.7 SECONDS (25.2-36.5)
[2024-01-31] MEDS ORDERED: ONDANSETRON 4 MG/2 ML VIAL IVPUSH PRN (23:00)
[2024-02-01] MEDS: PIPERACILLIN/TAZOB 4.5 GM 4.5 GM in DEXTROSE 5%-WATER 100 ML IVPB SCH ×2 (02:37→16:38)
[2024-02-01] MEDS: SODIUM CHLORIDE 1,000 ML IV SCH (03:51)
[2024-02-01 04:01] VITALS: BMI 58.4
[2024-02-01] MEDS: ALBUTEROL SO4 0.083% IH SOL 2.5 MG/3 ML VIAL.NEB. NEB PRN (04:30)
[2024-02-01 08:40] LABS: BASO % 0.3 % (0-2.0); EOS % 4.8 % (0-4.5); HEMOGLOBIN 8.4 GM/dL (10.7-15.3); LYMPH % 19.6 % (8-40); MCHC 31.1 g/dl (32.0-36.0); MEAN CELL VOLUME 70.6 fl (80-96); MEAN PLT VOLUME 7.5 fl (7.5-11.1); MONO % 5.8 % (3.8-10.2); NEUT % 69.5 % (42.8-82.8); PLATELET COUNT 359 10^3/uL (134-434); RBC 3.83 M/mm3 (3.60-5.2); RDW 19.9 % (11.6-15.6); WHITE BLOOD COUNT 9.3 K/mm3 (4.0-10.0)
[2024-02-01 08:45] LABS: POTASSIUM 4.3 mmol/L (3.5-5.1)
[2024-02-01 08:46] LABS: CALCIUM 8.5 mg/dL (8.5-10.1)
[2024-02-01 08:47] LABS: BLOOD UREA NITROGEN 17.7 mg/dL (7-18)
[2024-02-01] MEDS: DEXTROSE 5%-0.45% SALINE 1,000 ML IV SCH ×2 (08:49→21:55)
[2024-02-01 08:50] LABS: CREATININE 0.6 mg/dL (0.55-1.3)
[2024-02-01 09:45] LABS: ANISOCYTOSIS 1+; MACROCYTOSIS 1+
[2024-02-01] MEDS: ENOXAPARIN NA (PORCINE) 40 MG/0.4 ML DISP.SYRIN SQ SCH (09:53)
[2024-02-01] MEDS: INSULIN ASPART SLIDING SCALE (NOVOLOG) 1 VIAL SQ SCH (12:16)
[2024-02-02] MEDS ORDERED: INSULIN (NOVOLOG) ASPART 100 UNITS/ML 10ML VIAL ONE ×2 (06:10→21:16)
[2024-02-02] MEDS ORDERED: BUPIVACAINE HCL/PF 0.25% (2.5MG/ML) 10 ML VIAL ONE (07:40)
[2024-02-02 08:24] LABS: BASO % 0.5 % (0-2.0); EOS % 4.9 % (0-4.5); HEMATOCRIT 26.9 % (32.4-45.2); HEMOGLOBIN 8.2 GM/dL (10.7-15.3); LYMPH % 25.7 % (8-40); MCH 21.5 pg (25.7-33.7); MCHC 30.3 g/dl (32.0-36.0); MEAN CELL VOLUME 70.8 fl (80-96); MEAN PLT VOLUME 7.4 fl (7.5-11.1); MONO % 5.9 % (3.8-10.2); PLATELET COUNT 367 10^3/uL (134-434); RDW 19.4 % (11.6-15.6); WHITE BLOOD COUNT 8.3 K/mm3 (4.0-10.0)
[2024-02-02 08:49] LABS: POTASSIUM 3.8 mmol/L (3.5-5.1)
[2024-02-02 08:51] LABS: CALCIUM 8.3 mg/dL (8.5-10.1)
[2024-02-02 08:52] LABS: BLOOD UREA NITROGEN 14.3 mg/dL (7-18); MAGNESIUM 2.2 mg/dL (1.8-2.4)
[2024-02-02 08:55] LABS: CREATININE 0.6 mg/dL (0.55-1.3)
[2024-02-02] MEDS ORDERED: ALBUTEROL SO4 0.083% IH SOL 2.5 MG/3 ML VIAL.NEB. NEB PRN (09:08)
[2024-02-02] MEDS: IRON SUCROSE INJECTION 200 MG in SODIUM CHLORIDE 100 ML IVPB ONE (13:02)
[2024-02-02] MEDS: methylPREDNISolone NA SUCC 40 MG/1 ML VIAL IVPUSH SCH (13:02)
[2024-02-02] MEDS: BUDESONIDE/FORMETEROL FUMARATE 160/4.5 mcg INHALER IH SCH (13:29)
[2024-02-02] MEDS: ALBUTEROL SO4 2.5/IPRATROPIUM 0.5 INH SOL 3 ML VIAL.NEB. NEB SCH (14:41)
[2024-02-02] MEDS: ACETAMINOPHEN 325 MG TABLET (FP) PO PRN (18:03)
[2024-02-03] MEDS ORDERED: HEPARIN NA (PORCINE) 5,000 UNITS/ML 1ML VIAL ONE (12:49)
[2024-02-03] MEDS ORDERED: cefOXitin SODIUM 2 GM VIAL (RESTRICTED TO ID) IVPB ONE (12:49)
[2024-02-03] MEDS ORDERED: INDOCYANINE GREEN 25 MG/10 ML VIAL IVPUSH ONE (12:49)
[2024-02-03] MEDS ORDERED: BUPIVACAINE HCL/PF 0.25% (2.5MG/ML) 10 ML VIAL ONE (12:49)
[2024-02-03] MEDS ORDERED: PROPOFOL 20 ML ONE ×2 (13:48→16:17)
[2024-02-03] MEDS ORDERED: ROCURONIUM BROMIDE 50 MG/5 ML SYRINGE ONE ×2 (13:48→14:47)
[2024-02-03] MEDS ORDERED: SUCCINYLCHOLINE CHLORIDE 200 MG/10 ML SYRINGE ONE (13:48)
[2024-02-03] MEDS ORDERED: MIDAZOLAM HCL 2 MG/2 ML SINGLE DOSE VIAL ONE (13:56)
[2024-02-03] MEDS: cefOXitin SODIUM 2 GM VIAL (RESTRICTED TO ID) IVPB ONE (14:15)
[2024-02-03] MEDS: BUPIVACAINE HCL/PF 0.25% (2.5MG/ML) 10 ML VIAL IJ ONE (14:46)
[2024-02-03] MEDS ORDERED: ONDANSETRON 4 MG/2 ML VIAL ONE (15:01)
[2024-02-03] MEDS ORDERED: KETOROLAC TROMETHAMINE 30 MG/1 ML VIAL ONE (15:01)
[2024-02-03] MEDS ORDERED: SUGAMMADEX SODIUM 200 MG/2 ML VIAL ONE (16:29)
[2024-02-03] MEDS ORDERED: ONDANSETRON 4 MG/2 ML VIAL IVPUSH PRN (16:46)
[2024-02-03] MEDS ORDERED: ALBUTEROL SO4 0.083% IH SOL 2.5 MG/3 ML VIAL.NEB. NEB ONE (16:56)
[2024-02-03] MEDS ORDERED: KETOROLAC TROMETHAMINE 30 MG/1 ML VIAL IVPUSH PRN (17:08)
[2024-02-03] MEDS: ALBUTEROL SO4 0.083% IH SOL 2.5 MG/3 ML VIAL.NEB. NEB PRN (17:08)
[2024-02-03] MEDS ORDERED: oxyCODONE HCL 5 MG TABLET PO PRN (17:09)
[2024-02-03] MEDS: DEXTROSE 5%-0.45% SALINE 1,000 ML IV SCH (18:42)
[2024-02-03] MEDS: LACTATED RINGERS SOLUTION 1,000 ML IV SCH (19:46)
[2024-02-03] MEDS: PIPERACILLIN/TAZOB 4.5 GM 4.5 GM in DEXTROSE 5%-WATER 100 ML IVPB SCH (21:21)
[2024-02-03] MEDS: oxyCODONE HCL 5 MG TABLET PO PRN (22:46)
[2024-02-04] MEDS: ALBUTEROL SO4 0.083% IH SOL 2.5 MG/3 ML VIAL.NEB. NEB PRN (07:30)
[2024-02-04 07:55] LABS: BASO % 0.2 % (0-2.0); EOS % 0.3 % (0-4.5); HEMATOCRIT 27.7 % (32.4-45.2); HEMOGLOBIN 8.6 GM/dL (10.7-15.3); LYMPH % 21.9 % (8-40); MCH 21.9 pg (25.7-33.7); MCHC 30.9 g/dl (32.0-36.0); MEAN CELL VOLUME 70.9 fl (80-96); MEAN PLT VOLUME 7.3 fl (7.5-11.1); MONO % 7.1 % (3.8-10.2); NEUT % 70.5 % (42.8-82.8); PLATELET COUNT 427 10^3/uL (134-434); RDW 19.4 % (11.6-15.6); WHITE BLOOD COUNT 10.6 K/mm3 (4.0-10.0)
[2024-02-04 08:15] LABS: ALBUMIN 2.9 g/dl (3.4-5.0); BLOOD UREA NITROGEN 9.7 mg/dL (7-18); CALCIUM 8.5 mg/dL (8.5-10.1)
[2024-02-04 08:20] LABS: BILIRUBIN,TOTAL 0.6 mg/dL (0.2-1); CREATININE 0.7 mg/dL (0.55-1.3); TOT PROT 6.6 g/dl (6.4-8.2)
[2024-02-04] MEDS ORDERED: INSULIN ASPART SLIDING SCALE (NOVOLOG) 1 VIAL SQ SCH (11:00)
[2024-02-04] MEDS ORDERED: INSULIN (NOVOLOG) ASPART 100 UNITS/ML 10ML VIAL ONE (11:29)
[2024-02-04] MEDS: ENOXAPARIN NA (PORCINE) 40 MG/0.4 ML DISP.SYRIN SQ SCH (11:36)
[2024-02-04] MEDS: INSULIN ASPART SLIDING SCALE (NOVOLOG) 1 VIAL SQ SCH (11:36)
[2024-02-04 13:44] VITALS: BP 123/58; PULSE 95; RESP 20; TEMP 98.2
[2024-02-04] MEDS ORDERED: MONTELUKAST NA 10 MG TABLET PO SCH (22:00)
[2024-02-04] MEDS ORDERED: FERROUS SO4 325 MG TABLET (FP) PO SCH (22:00)
== END 2024-02-04 17:30 | disposition home or self-care (01) | DRG 418 ==
LOC: FER 16:49 → J7W 02-01 03:30
PROVIDERS: ADMIT Internal Medicine; ATTEND Nurse Practitioner Acute Care
PROC: 8E0W4CZ Robotic Assisted Procedure of Trunk Region, Percutaneous Endoscopic Approach (ICD-10-PCS; 2024-02-03)
PROC: 0FT44ZZ Resection of Gallbladder, Percutaneous Endoscopic Approach (ICD-10-PCS; principal; 2024-02-03 12:30)
DX: K80.00 Calculus of gallbladder with acute cholecystitis without obstruction (principal); J45.901 Unspecified asthma with (acute) exacerbation; Z68.43 Body mass index [BMI] 50.0-59.9, adult; E11.9 Type 2 diabetes mellitus without complications; E66.01 Morbid (severe) obesity due to excess calories; G93.2 Benign intracranial hypertension; D50.9 Iron deficiency anemia, unspecified; G47.33 Obstructive sleep apnea (adult) (pediatric)
CPT/HCPCS: 36415; 76705-TC; 80048; 80053; 81003; 81015; 82962; 83735; 84703; 85025; 85027; 85610; 85730; 86850; 86900; 86901; 87040; 88304-TC; 94010; 94640; 94760; 99285-25; J1644; J1756